=== PATIENT | female | born 1970 | race Caucasian/White ===

== ENCOUNTER 2024-05-11 09:50 | Outpatient (CLI) | payer OTHER, SELFPAY ==
--- NOTE | ~2024-05-11 | MR_ITS ---
EXAMINATION: MR shoulder LT wo con DATE: 05/11/2024 10:35 INDICATION: Left shoulder pain. TECHNIQUE: Magnetic resonance imaging (MRI) of the left shoulder was performed without intravenous co ntrast. Sequences included axial PD-weighted FS FSE, coronal oblique PD-weighted FS FSE and T2-weight ed FS FSE, and sagittal oblique T2-weighted FS FSE and T1-weighted FSE. COMPARISON: None. FINDINGS: Coracoacromial arch: The acromion undersurface is curved in morphology (type II). There is mild acromioclavicular joint os teoarthritis. There is a physiologic volume of fluid in the subacromial/subdeltoid bursa. Rotator cuff: There is mild supraspinatus and infraspinatus tendinopathy. Teres minor tendon is normal. There is mi ld subscapularis tendinopathy. No tear. There is no asymmetric fatty atrophy of the rotator cuff musc le bellies. Biceps tendon and glenoid labrum: Biceps tendon is in bicipital groove. There is mild intra-articular biceps tendinopathy. The glenoid labrum is normal. Fluid: There is no glenohumeral joint effusion. Bones/cartilage: There is cartilage surface irregularity of glenoid and humeral head. IMPRESSION: 1. Mild rotator cuff tendinopathy. No tear. 2. Mild glenohumeral joint chondrosis. 3. Mild acromioclavicular joint osteoarthritis. 4. Mild biceps tendinopathy. Reviewed, dictated and finalized at location A. EE PLANTATION WORKER
== END 2024-05-11 09:51 | disposition home or self-care (01) ==
LOC: GOSHIMG 09:54
PROVIDERS: PCP Orthopaedic Surgery; Visit Provider Orthopaedic Surgery
DX: M75.22 Bicipital tendinitis, left shoulder (principal); M19.012 Primary osteoarthritis, left shoulder
CPT/HCPCS: 73221

== ENCOUNTER 2024-05-20 12:20 | Emergency (ER) | payer OTHER, SELFPAY ==
--- NOTE | ~2024-05-20 | XR_ITS ---
XR chest 2V DATE: 05/20/2024 14:09 INDICATION: Cough TECHNIQUE: 2 views COMPARISON: None FINDINGS: There is mild patchy right lower lobe infiltrate. The lungs otherwise appear clear. No pleural effusion or pulmonary congestion or pneumothorax. Normal heart size. No hilar or mediastinal enlargement. Status post cholecystectomy. Minimal thoracic dextroscoliosis, mild degenerative spurring of the thoracic spine. IMPRESSION: Mild patchy right lower lobe infiltrate Reviewed, dictated and finalized at location A. TE SENSING ENGINEER
[2024-05-20 13:10] VITALS: BP 133/82; PULSE 106; RESP 18; TEMP 36.3; O2SAT 98
--- NOTE | 2024-05-20 13:49 | ED.URI ---
HPI - URI/Sore Throat General Chief Complaint: Upper Respiratory Infection Stated Complaint: cough Time Seen by Provider: 05/20/24 13:50 Source: patient, RN notes reviewed and old records reviewed Mode of arrival: ambulatory Limitations: no limitations History of Present Illness HPI Narrative: 54-year-old female who presents to [facility] with complaints of 1 week duration of some sinus congestion with nonproductive cough. Patient reports that she has coughed so hard she could hardly catch her breath. Patient reports some tactile fevers,no chills or sweats or any body aches. Patient reports that she has taken NyQuil, hot showers, used vicks and drank hot toddies for her symptoms. 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 MD elicited complaint: fever (tactile), cough, rhinorrhea and nasal congestion Onset (ago): week(s) (1) Consistency: constant Severity: moderate Description of mucous: clear Able to tolerate fluids by mouth: Yes Treatments prior to arrival: other (NyQuil, Vicks, hot showers hot toddies) Related Data Home Medications ?Medication ?Instructions ?Recorded ?Confirmed ?Last Taken ?Type nortriptyline 25 mg capsule mg 05/20/24 Unknown History Allergies Allergy/AdvReac Type Severity Reaction Status Date / Time No Known Allergies Allergy Verified 05/20/24 13:33 Review of Systems Review of Systems: CONSTITUTIONAL: Reports malaise, chills, sweats, tactile fever. EYES: Denies visual changes, redness, or discharge. ENT: Reports rhinorrhea, congestion, no sinus pain,no otalgia and no sore throat. CARDIOVASCULAR: Denies chest pain, palpitations, or edema. RESPIRATORY: Reports non productive cough.? Denies acute dyspnea. GASTROINTESTINAL: Denies abdominal pain, nausea, vomiting, diarrhea SKIN: Denies rash or itching. MUSCULOSKELETAL: Denies myalgia. NEUROLOGIC: Denies headache. 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 There is no relevant family history pertinent to the presenting complaint Exam Narrative: GENERAL: Well-appearing, well-nourished, and in no acute distress. HEAD: Normocephalic EYES: PERRLA, conjunctivae clear ENT: Nares clear, turbinates edematous and erythematous, clear discharge. Mucous membranes moist. TM pearly vargas with dull light reflex bilaterally; no tragal tenderness. Oropharynx erythematous without lesions. Tonsils not enlarged and without exudate, no drooling, no hoarseness, no trismus, uvula midline.post nasal discharge NECK: Supple. No lymphadenopathy CHEST: decreased bases on auscultation, breath sounds equal. No wheezing, rhonchi, rales, or stridor. No respiratory distress, speaks in full sentences.acute cough SAO2 98% on room air HEART: Regular rate and rhythm. No murmur heard. SKIN: Warm, dry, no rash. NEURO: Alert and oriented x3. PSYCH: Normal mood and affect Course Course Emergency Course: Patient is aware of diagnosis, understands and agrees to treatment plan.? Anticipatory guidance given.? Patient agrees to follow-up as directed and is aware of reasons to seek care at the emergency department. Portions of this record may have been created with voice recognition software Level of Care: Express Care Visit Vital Signs Vital signs: Vital Signs Temperature 36.3 C L 05/20/24 13:10 Pulse Rate 106 H 05/20/24 13:10 Respiratory Rate 18 05/20/24 13:10 Blood Pressure 133/82 05/20/24 13:10 Pulse Oximetry 98 05/20/24 13:10 Oxygen Delivery Room Air 05/20/24 13:10 Temperature 36.3 C L 05/20/24 13:10 Pulse Rate 106 H 05/20/24 13:10 Respiratory Rate 18 05/20/24 13:10 Blood Pressure 133/82 05/20/24 13:10 Pulse Oximetry 98 05/20/24 13:10 Oxygen Delivery Room Air 05/20/24 13:10 Reviewed MDM - URI/Sore Throat MDM Narrative Medical decision making narrative: Differential diagnosis considered: Crisostomo virus, strep pharyngitis, allergic rhinitis, upper respiratory tract infection, sinusitis, rhinosinusitis, nasopharyngitis. viral pharyngitis, otitis media, otitis externa, pneumonia, bronchitis, viral cough syndrome, viral syndrome, and influenza.? Exam findings show no acute concerns or changes; patient is non-toxic appearing and is in no distress.? Patient is appropriate for outpatient treatment and follow-up. Differential Diagnosis Differential diagnosis: Likely upper respiratory infection, viral infection and other (pneumonia, acute cough) Medical Records Attestation: I reviewed the patient's medical records. Lab Data Attestation: I reviewed the patient's lab results. Imaging Data Attestation: I personally reviewed and interpreted this imaging study as follows: My impression: right lower lobe pneumonia Radiologist's impression: [address] [address] XRay Report Signed Patient: Linh Ortiz : 1970 MR#: [id number] Age: 54 Acct:[id number] Loc: [facility] ADM Date: 05/20/24Attending Dr: Ordering Physician: Merle Monroy ORE BUYER Date of Service: 05/20/24 Procedure(s): XR chest 2V Accession Number(s): [id number] cc: WINDOWS SUPPORT ENGINEER PHYSICIAN; Merle Monroy ORE BUYER~ XR chest 2V DATE: 05/20/2024 14:09 INDICATION: Cough TECHNIQUE: 2 views COMPARISON: None FINDINGS: There is mild patchy right lower lobe infiltrate. The lungs otherwise appear clear. No pleural effusion or pulmonary congestion or pneumothorax. Normal heart size. No hilar or mediastinal enlargement. Status post cholecystectomy. Minimal thoracic dextroscoliosis, mild degenerative spurring of the thoracic spine. IMPRESSION: Mild patchy right lower lobe infiltrate Reviewed, dictated and finalized at location A. [employer] Dictated By: Douglas Chaney MD 05/20/24 1412 Signed By: <Electronically signed by Douglas Chaney MD in OV> Critical Care Time Critical Care Time Critical Care Time: No Discharge Plan Discharge Clinical Impression: Right lower lobe pneumonia Qualifiers: Pneumonia type: due to unspecified organism Qualified Code(s): J18.9 - Pneumonia, unspecified organism Patient Disposition: Home, Self-Care Condition: Stable Instructions: Antibiotic Form, Pneumonia (ED) Additional Instructions: Increase fluids especially juices and water Ifvx-fav-ywkyhyd cough and cold medicine of your choice for your symptoms Prescription cough medicine as directed--caution drowsiness and no driving or alcohol Tylenol or ibuprofen for any fever pain If your symptoms persist, change or worsen significantly before you can contact your personal physician then please, without delay, go to the emergency department for further evaluation. Follow-up with PCP in 7-10 days or sooner if needed Follow up with PCP soon in regards to your blood pressure which is elevated above threshold for referral. Blood pressure above 120/80 may indicate pre-hypertension. 133/82 Continue your inhaler/nebulizer as directed Steroids as directed--take with food heat to the face 20-30 minutes 4-6 times a day for pain Salt water gargles, throat lozenges or throat sprays as desired Antibiotic as directed--finished the medication Patient Language: Serbian Prescriptions: New azithromycin 500 mg tablet 500 mg PO DAILY 5 Days Qty: 5 0RF prednisone 20 mg tablet 40 mg PO DAILY 5 Days Qty: 10 0RF albuterol sulfate 90 mcg/actuation HFA aerosol inhaler 2 puff inhalation QID PRN (Reason: shortness of breath or wheezing) Qty: 8.5 0RF codeine-guaifenesin 10-100 mg/5 mL liquid 10 ml PO Q6H PRN (Reason: cough) Qty: 200 0RF No Action nortriptyline 25 mg capsule Follow-up/Referrals: PHYSICIAN,WINDOWS SUPPORT ENGINEER [Primary Care Provider] - Time of Disposition: 14:26 Quality Diana Coma Scale Eyes: Open Verbal: Oriented and Alert Motor: Follows Commands [place] Coma Total Score: 15
--- OUTSIDE RECORDS SUMMARY | 2024-05-27 17:44 | XMS_ITS | Encounter Summary ---
Author Organization [facility] Address [address] [place] [address]. [place], [place] [id number] [place] [address] Care Team Providers Care Carton Inspector Name Role Phone Unavailable Primary Care Provider Unavailabl e Encounter Details Date Type Department Care Team (Latest Contact Info) Description 11/28/2014 Abstract [facility] Wade Baird NP Social History Tobacco Use Types Packs/Day Years Used Date Smoking Tobacco: Never Comments Unknown Sex and Gender Information Value Date Recorded Sex Assigned at Not on file Legal Sex Female 2:01 AM CDT Gender Identity Not on file Sexual Orientation Not on file documented as of this encounter Plan of Treatment Not on file documented as of this encounter Procedures Procedure Name Priority Date/Time Associated Diagnosis Comments TSH W/REFLEX Routine 11/28/2014 11:09 AM CDT documented in this encounter Results * TSH W/REFLEX (SNS) (11/28/2014 11:09 AM CDT) TSH 2.61 mIU/L [facility] T O EPIC CONVERSION Comment: Result Comment: ? Reference Range ?> or = 20 Years ??0.40-4.50 ? Ranges ?First trimester ?0.26-2.66 ?Second trimester ?? 0.55-2.73 ?Third trimester ?0.43-2.91 REPORT COMMENT: FASTING:NO Test Performed at: [facility] [place] [id number] [place] [address] [place] ??[id number] ? ANUSHA MCLEOD DO,MPH 11/28/2014 11:0 9 AM CDT 11/28/2014 11:09 AM CDT Narrative [facility] TO EPIC CONVERSION - 11/28/2014 11:09 AM CDT Result Communication: Call patient with results Wade Baird NP LABORATORY Final Result [facility] TO EPIC CONVERSION documented in this encounter Visit Diagnoses Not on filedocumented in this encounter
--- OUTSIDE RECORDS SUMMARY | 2024-05-27 17:44 | XMS_ITS | Encounter Summary ---
Author Organization [facility] Address [address] [place] [address]. [place] [id number] [place], [place] [id number] Care Team Providers Care Talk Show Host Name Role Phone Unavailable Primary Care Provider Unavailabl e Encounter Details Date Type Department Care Team (Late st Contact Info) Description 05/07/2015 Abstract [facility] Family & Internal Medicine [facility] [address] [place] [address] Wade Baird NP Social History Tobacco Use Types Packs/Day Years Used Date Smoking Tobacco: Never Comments Unknown Sex and Gender Information Value Date Recorded Sex Assigned at Not on file Legal Sex Female 2:01 AM CDT Gender Identity Not on file Sexual Orientation Not on file documented as of this encounter Progress Notes * Wade Baird NP - 05/07/2015 1:30 PM CST Message Recorded as Task Date: 05/07/2015 12:46 PM, Created By: Wade Baird Task Name: Call Back [facility] Regarding Patient: Linh Ortiz, Status: In Progress Comment: Wade Baird - 07 May 2015 12:46 PM TASK CREATED please notify patient an order for an MRI has been placed. her neck CT showed mild narrowing at thec5-6 level. Coleen Valerio - 07 May 2015 1:30 PM TASK EDITED pt informed and aware Signatures Electronically signed by : Coleen Thompson, ; May 07 2015 1:31PM POWER SHOVEL OPERATOR (Author) * Wade Baird NP - 05/07/2015 10:58 AM CST patient here after seen ER this am and two days ago for right arm/hand pain. unable to get EMG for two weeks. CT of neck done in ER today; told to have MRI ordered. we do not have results of CT. explained to patient and will need CT results before ordering MRI as xray of neck normal. Electronically signed by:Wade Baird N.P. May 07 2015 11:00AM POWER SHOVEL OPERATOR * Teri Xiao Md, MD - 05/07/2015 10:38 AM CST This legacy Allscripts note was not finalized in Allscripts. It had a status of Auto Frozen, Unsigned on 02/24/2018 Message Date of Hospital/[place] Discharge: 05/07/2015 Date of Contact: Individual Contacted: Contacted by: Reviewed/ Addressed documented in this encounter Plan of Treatment Not on file documented as of this encounter Visit Diagnoses Not on filedocumented in this encounter
--- OUTSIDE RECORDS SUMMARY | 2024-05-27 17:44 | XMS_ITS | Clinical Summary ---
Author Organization [facility] Address [address] [place] [address]. [place], [place] [id number] [place] [id number] Care Team Providers Care Radio Board Operator Announcer Name Role Phone Unavailable Primary Care Provider Unavailabl e Immunizations Name Administration Dates Next Due MODERNA COVID-19 (12+) MRNA, LNP-S, PF, 100 MCG/ 0.5 ML DOSE 08/01/2020,07/04/2020 Social History Tobacco Use Types Packs/Day Years Used Date Smoking Tobacco: Never Comments Unknown Sex and Gender Information Value Date Recorded Sex Assigned at Not on file Legal Sex Female 2:01 AM CDT Gender Identity Not on file Sexual Orientation Not on file Last Filed Vital Signs Vital Sign Reading Time Taken Comments Blood Pressure 104/80 07/04/2017 2:48 PM SUPERVISOR FUNCTIONAL TESTING Pulse 94 07/04/2017 2:48 PM SUPERVISOR FUNCTIONAL TESTING Temperature - - Respiratory Rate - - Oxygen Saturation - - Inhaled Oxygen Concentration - - Weight 103.1 kg (227 lb 6.1 oz) 07/04/2017 2:48 PM SUPERVISOR FUNCTIONAL TESTING Height 160 cm (5' 3 ) 07/04/2017 2:48 PM SUPERVISOR FUNCTIONAL TESTING Body Mass Index 40.28 07/04/2017 2:48 PM SUPERVISOR FUNCTIONAL TESTING Plan of Treatment Health Maintenance Due Date Last Done Comments Cervical Cancer Screening Pa p Smear (Age 30 to 64) Every 3 Years 1972 Colorectal Cancer Screening Colonoscopy (10 Years) 1972 Annual Physical 1975 Hepatitis C 1990 DTaP, Tdap and Td Vaccines ( 1 - Tdap) 1991 Hepatitis B Vaccines (1 of 3 - 19+ 3-dose series) 1991 Cervical Cancer Screening Pa p with HPV Testing (Age 30 to 64) Every 5 Years 2002 Cervical Cancer Screening wi th HPV 2002 Mammogram Screening 2012 Zoster Vaccines (1 of 2) 2022 COVID-19 Vaccine (3 2023-2 5 season) 2024 08/01/2020, 07/04/2020 Influenza Adult (#1) 2024 Meningococcal Vaccine Aged Out No brittany jairo eligible based on patient's age to complete this topic Pneumococcal Vaccine: Pediatrics (0 to 5 Years) and At-Risk Patients (6 to 64 Years) Aged Out No longer eligible b ased on patient's age to complete this topic RSV Immunizations Under 20 Months Aged Out No longer eligible b ased on patient's age to complete this topic
--- OUTSIDE RECORDS SUMMARY | 2024-05-27 17:44 | XMS_ITS | Encounter Summary ---
Author Organization [facility] Address [address] [place] [address]. [place] [address] [place] [address] Care Team Providers Care Rehab Spec Name Role Phone Unavailable Primary Care Provider Unavailabl e Encounter Details Date Type Department Care Team (Latest Contact Info) Description 01/28/2015 Abstract [facility] Marek Blue MD [address] [facility] [place] [address] Social History Tobacco Use Types Packs/Day Years Used Date Smoking Tobacco: Never Comments Unknown Sex and Gender Information Value Date Recorded Sex Assigned at Not on file Legal Sex Female 2:01 AM CDT Gender Identity Not on file Sexual Orientation Not on file documented as of this encounter Progress Notes * Marek Blue MD - 01/28/2015 3:33 PM CDT Message Message: I called and spoke with the patient regarding FNA results from thyroid. Secondary to benign results but large size of nodule, we will plan a f/u US in 1 year. Active Problems 1. Abdominal pain, right upper quadrant (789.01) (R10.11) 2. Abnormal EKG (794.31) (R94.31) 3. Thyroid nodule (241.0) (E04.1) Current Meds 1. No Reported Medications Recorded Allergies 1. No Known Drug Allergies Signatures Electronically signed by : Marek Blue M.D.; Jan 28 2015 3:34PM CARPET BINDER (Author) documented in this encounter Plan of Treatment Not on file documented as of this encounter Visit Diagnoses Not on filedocumented in this encounter
--- OUTSIDE RECORDS SUMMARY | 2024-05-27 17:44 | XMS_ITS | Encounter Summary ---
Author Organization [facility] Address [address] [place] [address]. [place], [place] [id number] [place] [address] Care Team Providers Care Aircraft Engine Mechanic Name Role Phone Unavailable Primary Care Provider Unavailabl e Encounter Details Date Type Department Care Team (Latest Contact Info) Description 12/04/2014 Abstract [facility] Social History Tobacco Use Types Packs/Day Years Used Date Smoking Tobacco: Never Comments Unknown Sex and Gender Information Value Date Recorded Sex Assigned at Not on file Legal Sex Female 2:01 AM CDT Gender Identity Not on file Sexual Orientation Not on file documented as of this encounter Progress Notes * Teri Xiao Md, MD - 12/04/2014 5:02 PM CDT Message Recorded as Task Date: 12/02/2014 08:15 AM, Created By: Wade Baird Task Name: Call Patient with results Assigned To: Wade Baird Regarding Patient: Linh Ortiz, Status: Active Comment: Wade Baird - 02 Dec 2014 8:15 AM Patient please notify patient her thyroid hormone is normal. will notify her of thyroid US results when available. thanks Jasmin Patel - 04 Dec 2014 5:02 PM TASK EDITED pt told results. Signatures Electronically signed by : Jasmin Patel, ; Dec 04 2014 5:03PM ELECTRICAL ENGINEERING MANAGER (Author) documented in this encounter Plan of Treatment Not on file documented as of this encounter Visit Diagnoses Not on filedocumented in this encounter
--- OUTSIDE RECORDS SUMMARY | 2024-05-27 17:44 | XMS_ITS | Encounter Summary ---
Author Organization [facility] Address [facility] [facility] [place] [address] [place] [address] Care Team Providers Care Him Specialist Name Role Phone Unavailable Primary Care Provider Unavailabl e Encounter Details Date Type Department Care Team (Late st Contact Info) Description 12/12/2014 Abstract [facility] Medical [facility] General Surgery - Emiliano [address] [facility], [address] [place] [address] Marek Blue MD [address] [facility] [place] [address] Social History Tobacco Use Types Packs/Day Years Used Date Smoking Tobacco: Never Comments Unknown Sex and Gender Information Value Date Recorded Sex Assigned at Not on file Legal Sex Female 2:01 AM CDT Gender Identity Not on file Sexual Orientation Not on file documented as of this encounter Last Filed Vital Signs Vital Sign Reading Time Taken Comments Blood Pressure 102/70 12/12/2014 11:50 AM CDT Pulse 56 12/12/2014 11:50 AM CDT Temperature - - Respiratory Rate - - Oxygen Saturation - - Inhaled Oxygen Concentration - - Weight 99.8 kg (220 lb) 12/12/2014 11:50 AM CDT Height 160 cm (5' 3 ) 12/12/2014 11:50 AM CDT Body Mass Index 38.97 12/12/2014 11:50 AM CDT documented in this encounter Progress Notes * Marek Blue MD - 12/12/2014 11:45 AM CDT Reason For Visit Consultation Visit History of Present Illness HPI: Patient presents to clinic with concerns about incidentally found thyroid nodule and normal TSH. She has US that shows multinodular goiter with largest node over 3 cm on the right. She has no symptoms or concerns. Review of Systems See HPI for pertinent positives. Constitutional: negative. Head and Face: no facial pressure. Eyes: no watery discharge from the eyes. ENT: no nasal congestion. Cardiovascular: negative. Respiratory: negative. Gastrointestinal: negative. Genitourinary: no dysuria. Musculoskeletal: no back pain. Integumentary no superficial skin pain and no rash. Psychiatric: no anxiety. Hematologic and Lymphatic: no tendency for easy bleeding and no jaundice. Neurological no headache. Endocrine no night sweats. Active Problems 1. Abdominal pain, right upper quadrant (789.01) (R10.11) 2. Abnormal EKG (794.31) (R94.31) 3. Thyroid nodule (241.0) (E04.1) Past Medical History 1. History of malignant neoplasm of cervix uteri (V10.41) (Z85.41) Surgical History 1. History of Gallbladder Surgery Family History Mother 1. Family history of rheumatoid arthritis (V17.7) (Z82.61) Family History 2. Family history of Coronary bypass graft mechanical complication Social History ? Never a smoker Current Meds 1. No Reported Medications Recorded GISELE = N; ; Last Updated By: Bernadine Chisholm; 10/04/2014 3:49:09 PM Allergies 1. No Known Drug Allergies Recorded By: Bernadine Chisholm; 10/04/2014 3:48:48 PM Vitals Recorded: [id number] 11:50AM Temperature 97.8 F Heart Rate 56 Respiration 20 Systolic 102 Diastolic 70 O2 Saturation 95 Height 5 ft 3 in Weight 220 lb BMI Calculated 38.97 BSA Calculated 2.01 Physical Exam Constitutional - General appearance: No acute distress, well appearing and well nourished. Cardiovascular - Peripheral vascular exam: Normal. Examination of extremities for edema and/or varicosities: Normal. Pulmonary - Respiratory effort: Normal. Auscultation of lungs: Normal. Abdomen - Abdomen: Non-tender, no masses. Liver and spleen: No hepatomegaly or splenomegaly. Lymphatic - Palpation of lymph nodes: No lymphadenopathy. Skin - Skin and subcutaneous tissue: Normal without rashes or lesions. Neurologic - Sensation: Normal. Psychiatric - Orientation to person, place, and time: Normal. Mood and affect: Normal. Assessment 44 y/o female with multinodular goiter with one 3 cm nodule Plan Thyroid nodule 1. Call if: You have questions or concerns about your problem.; Status:Active; Requested for:[id number]; Last Updated By:Maddison Cherry; 12/12/2014 11:52:19 AM;Ordered; For:Thyroid nodule; Ordered By:Marek Blue; 2. NM THYROID SCAN W/UPTAKE MULTI; Status:Need Information - Financial Authorization; Requested for:[id number]; Perform:[facility]; Due:[id number]; Last Updated By:Silvia Padron; 12/12/2014 12:03:51 PM;Ordered; For:Thyroid nodule; Ordered By:Delbert Agustin; thyroid uptake scan to assess for cold nodule that may be suspicious, I will call with results and arrange for FNA bx of at least the largest nodule Signatures Electronically signed by : Marek Blue M.D.; Dec 12 2014 1:31PM LABOR OPERATOR (Author) documented in this encounter Plan of Treatment Not on file documented as of this encounter Visit Diagnoses Not on filedocumented in this encounter
--- OUTSIDE RECORDS SUMMARY | 2024-05-27 17:44 | XMS_ITS | Encounter Summary ---
Author Organization [facility] Address [facility] [facility] [address] [place] [address] Care Team Providers Care Cloth Bleaching Range Back Tender Name Role Phone Unavailable Primary Care Provider Unavailabl e Encounter Details Date Type Department Care Team (Late st Contact Info) Description 11/27/[address] [facility] Diagnostic Imaging [address] [place] [id number] Rashaun Booker MD [address] [id number] Social History Tobacco Use Types Packs/Day Years Used Date Smoking Tobacco: Never Comments Unknown Sex and Gender Information Value Date Recorded Sex Assigned at Not on file Legal Sex Female 2:01 AM CDT Gender Identity Not on file Sexual Orientation Not on file documented as of this encounter Plan of Treatment Not on file documented as of this encounter Visit Diagnoses Diagnosis Benign essential hypertension Essential hypertension, benign documented in this encounter
--- OUTSIDE RECORDS SUMMARY | 2024-05-27 17:44 | XMS_ITS | Encounter Summary ---
Author Organization [facility] Address [address] [place] [address]. [place] [address] [place] [address] Care Team Providers Care Caustic Plant Worker Name Role Phone Unavailable Primary Care Provider Unavailabl e Encounter Details Date Type Department Care Team (Late st Contact Info) Description 05/05/2015 Abstract [facility] Emergency Room [address] [place] [address] Konrad Tolentino MD [address] [facility] [address] [place] [address] Social History Tobacco Use Types Packs/Day Years Used Date Smoking Tobacco: Never Comments Unknown Sex and Gender Information Value Date Recorded Sex Assigned at Not on file Legal Sex Female 2:01 AM CDT Gender Identity Not on file Sexual Orientation Not on file documented as of this encounter Plan of Treatment Not on file documented as of this encounter Visit Diagnoses Diagnosis Carpal tunnel syndrome of right wrist Carpal tunnel syndrome documented in this encounter
--- OUTSIDE RECORDS SUMMARY | 2024-05-27 17:44 | XMS_ITS | Encounter Summary ---
Author Organization [facility] Address [address] [place] [address]. [place] [id number] [place], [place] [id number] Care Team Providers Care Emergency Medical Service Manager Name Role Phone Unavailable Primary Care Provider Unavailabl e Encounter Details Date Type Department Care Team (Latest Contact Info) Description 04/29/2015 Abstract [facility] Medical Group Social History Tobacco Use Types [...]
--- OUTSIDE RECORDS SUMMARY | 2024-05-27 17:44 | XMS_ITS | Encounter Summary ---
Author Organization [facility] Address [address] [place] [address]. [place], [place] [address] [place] [address] Care Team Providers Care Skimmer Reverberatory Name Role Phone Unavailable Primary Care Provider Unavailabl e Encounter Details Date Type Department Care Team (Latest Contact Info) Description 12/02/2014 Abstract [facility] Medical Group Social History Tobacco Use Types Packs/Day Years Used Date Smoking Tobacco: Never Comments Unknown Sex and Gender Information Value Date Recorded Sex Assigned at Not on file Legal Sex Female 2:01 AM CDT Gender Identity Not on file Sexual Orientation Not on file documented as of this encounter Progress Notes * Tyler Nails MD - 12/02/2014 8:15 AM CDT Message please notify patient her thyroid hormone is normal. will notify her of thyroid US results when available. thanks received carotid US results which showed possible thyroid nodules. a TSH and thyroid US were ordered Verified Results QU-TSH W/REFLEX TO FT4 [id number] 11:09AM Wade Baird Test Name Result Flag Reference TSH W/REFLEX TO FT4 2.61 mIU/L Reference Range > or = 20 Years 0.40-4.50 Ranges First trimester 0.26-2.66 Second trimester 0.55-2.73 Third trimester 0.43-2.91 REPORT COMMENT: FASTING:NO Test Performed at: [facility] [address] [place] [address] ANUSHA MCLEOD DO,MPH Signatures Electronically signed by : Wade Baird NP; Dec 02 2014 8:16AM TITLE CURATIVE SPECIALIST (Author) documented in this encounter Plan of Treatment Not on file documented as of this encounter Visit Diagnoses Not on filedocumented in this encounter
--- OUTSIDE RECORDS SUMMARY | 2024-05-27 17:44 | XMS_ITS | Encounter Summary ---
Author Organization [facility] Address [address] [place] [address]. [place] [address] [place] [address] Care Team Providers Care Phys Ther Name Role Phone Unavailable Primary Care Provider Unavailabl e Encounter Details Date Type Department Care Team (Latest Contact Info) Description 01/24/2015 Abstract [facility] Medical Group Marek Groves MD [address] [place] [address] Social History Tobacco Use Types Packs/Day Years Used Date Smoking Tobacco: Never Comments Unknown Sex and Gender Information Value Date Recorded Sex Assigned at Not on file Legal Sex Female 2:01 AM CDT Gender Identity Not on file Sexual Orientation Not on file documented as of this encounter Procedure Notes * Marek Groves MD - 01/23/2015 4:01 PM CDT [facility] Patient: JUSTINA ORDAZ [facility] Rec#: [id number] Birthdate: 1970 Admit/Svce Date: 01/23/2015 Disch Date: Attending Md: SAURABH GROVES MD OPERATIVE RECORD Date of Operation: 01/23/2015 Surgeon: Saurabh Groves MD Ass't: Chart Document Preoperative Diagnosis: Multiple thyroid nodules, largest on the right with greatest dimension of 3 cm on thyroid uptake scans noted to be cold. Postoperative Diagnosis: Multiple thyroid nodules, largest on the right with greatest dimension of 3 cm on thyroid uptake scans noted to be cold. Name of Operation: Ultrasound guided fine needle aspiration of nodule. PROCEDURE AND FINDINGS: ANESTHESIA: 1% lidocaine with epinephrine. SPECIMENS: Sent to pathology, reviewed for cellularity prior to completing exam, determining good cellularity. COMPLICATIONS: None. INDICATIONS FOR PROCEDURE: The patient presented to the clinic with concerns of multiple nodules noted on thyroid ultrasound, sent for thyroid uptake scan showing cold area in the vicinity of largest nodule. The risks, benefits, alternatives and complications of the procedure including infection, bleeding, damage to surrounding tissue, need for further procedure were discussed with the patient who wished to proceed. PROCEDURE: The patient was brought into the Ultrasound Suite. Time-out was called with agreement of all members in the room. The patient was lying in the supine position. Nodule was localized. The area was prepped and draped in the usual sterile fashion. Time-out was called. Then an ultrasound in sterile sleeve was used again to localize the nodule. A 25 gauge needle was used to aspirate on a total of five passes after numbing the area superficially. The patient tolerated the procedure well. No signs of bleeding or bruising were noted. The area was cleaned, bandage was placed. The patient was brought to recovery. Electronically Signed By: Saurabh Groves MD 01/24/2015 01:20 P MD Jeronimo ParkerK: P A cc: Saurabh Groves MD [phone] documented in this encounter Plan of Treatment Not on file documented as of this encounter Visit Diagnoses Not on filedocumented in this encounter
--- OUTSIDE RECORDS SUMMARY | 2024-05-27 17:44 | XMS_ITS | Encounter Summary ---
Author Organization [facility] Address [address] [place] [address]. [place] [phone] [place], [place] [id number] Care Team Providers Care Oven Tender Bagels Name Role Phone Unavailable Primary Care Provider Unavailabl e Encounter Details Date Type Department Care Team (Late st Contact Info) Description 11/19/2014 [facility] [address] [place] [address] , Teri Xiao MD Social History Tobacco Use Types Packs/Day Years [...]
--- OUTSIDE RECORDS SUMMARY | 2024-05-27 17:44 | XMS_ITS | Encounter Summary ---
Author Organization [facility] Address [address] [place] [address]. [place] [phone] [place] [address] Care Team Providers Care Feed Weigher Name Role Phone Unavailable Primary Care Provider Unavailabl e Encounter Details Date Type Department Care Team (Latest Contact Info) Description 08/21/2015 Abstract [facility] Medical Group Wade Baird, ENTERPRISE ENGINEER Social History Tobacco Use Types Packs/Day Years [...]
--- OUTSIDE RECORDS SUMMARY | 2024-05-27 17:44 | XMS_ITS | Encounter Summary ---
Author Organization [facility] Address [address] [place] [address]. [place] [phone] [place], [place] [phone] Care Team Providers Care Photolettering Machine Operator Name Role Phone Unavailable Primary Care Provider Unavailabl e Encounter Details Date Type Department Care Team (Late st Contact Info) Description 05/13/2015 Abstract [facility] Medical Group Family & Internal Medicine [facility] [address] [place] [address] Wade Baird NP Social History Tobacco Use Types Packs/Day Years Used Date Smoking Tobacco: Never Comments Unknown Sex and Gender Information Value Date Recorded Sex Assigned at Not on file Legal Sex Female 2:01 AM CDT Gender Identity Not on file Sexual Orientation Not on file documented as of this encounter Progress Notes * Wade Baird NP - 05/13/2015 11:43 AM CST Message Recorded as Task Date: 05/13/2015 11:43 AM, Created By: Coleen Thompson Task Name: Medical Complaint Callback [facility] Regarding Patient: Linh Ortiz, Status: In Progress Comment: Coleen Thompson - 13 May 2015 11:43 AM TASK CREATED Pt called wanting to know if she needs to wean off the prednisone and gabpentin since she has a fewdays left of medications. Spoke with Wade and wants pt to continue taking gabpentin and will refill for 30 days, needs to complete the prednisone and no refills Coleen Thompson - 13 May 2015 11:48 AM TASK EDITED spoke with pt and understands. Script was sent to [facility]. Gabapentin 300 MG Oral Capsule; TAKE 1 CAPSULE BY MOUTH THREE TIMES A DAY Rx By: Wade Baird; Dispense: 30 Days ; #:90 Capsule; Refill: 0; For: Carpal tunnel syndrome of right wrist; GISELE = N; Verified Transmission to [facility]; Last Updated By: Vijay Chatman; 05/13/2015 11:45:17 AM Signatures Electronically signed by : Coleen Thompson, ; May 13 2015 11:49AM TRANSIT MIXER OPERATOR (Author) documented in this encounter Plan of Treatment Not on file documented as of this encounter Visit Diagnoses Not on filedocumented in this encounter
--- OUTSIDE RECORDS SUMMARY | 2024-05-27 17:44 | XMS_ITS | Encounter Summary ---
Author Organization [facility] Address [address] [place] [address]. [place] [phone] [place] [address] Care Team Providers Care Clasp Machine Operator Name Role Phone Unavailable Primary Care Provider Unavailabl e Encounter Details Date Type Department Care Team (Latest Contact Info) Description 05/27/2015 Abstract [facility] Medical Group Wade Baird, NOODLE CATALYST MAKER Social History Tobacco Use Types Packs/Day Years [...]
--- OUTSIDE RECORDS SUMMARY | 2024-05-27 17:44 | XMS_ITS | Encounter Summary ---
Author Organization [facility] Address [address] [place] [address]. [place] [address] [place] [address] Care Team Providers Care Child Welfare Caseworker Name Role Phone Unavailable Primary Care Provider Unavailabl e Encounter Details Date Type Department Care Team (Late st Contact Info) Description 11/22/2017 Abstract [facility] Diagnostic Imaging [address] [place] [address] Malvin Vargas, C WINFORMS DEVELOPER [address] [place] [address] Social History Tobacco Use Types Packs/Day Years Used Date Smoking Tobacco: Never Comments Unknown Sex and Gender Information Value Date Recorded Sex Assigned at Not on file Legal Sex Female 2:01 AM CDT Gender Identity Not on file Sexual Orientation Not on file documented as of this encounter Plan of Treatment Not on file documented as of this encounter Visit Diagnoses Diagnosis Pelvic and perineal pain Unspecified symptom associated with female genital organs documented in this encounter
--- OUTSIDE RECORDS SUMMARY | 2024-05-27 17:44 | XMS_ITS | Encounter Summary ---
Author Organization [facility] Address [address] [place] [address]. [place], [place] [address] [place] [address] Care Team Providers Care Weekday Babysitter Name Role Phone Unavailable Primary Care Provider Unavailabl e Encounter Details Date Type Department Care Team (Latest Contact Info) Description 12/20/2014 Abstract [facility] Medical Group Social History Tobacco Use Types Packs/Day Years Used Date Smoking Tobacco: Never Comments Unknown Sex and Gender Information Value Date Recorded Sex Assigned at Not on file Legal Sex Female 2:01 AM CDT Gender Identity Not on file Sexual Orientation Not on file documented as of this encounter Progress Notes * Marek Blue MD - 12/20/2014 11:36 AM CDT Message Message: Patient called requesting Thyroid Scan results. Spoke with Dr. Blue, he reviewed the report and recommended a FNA. Patient notified of results and orders. Stated was on vacation and would call when returned to schedule procedure. Signatures Electronically signed by : Maddison Cherry, ; Dec 25 2014 11:48AM SHACTOR HELPER (Author) documented in this encounter Plan of Treatment Not on file documented as of this encounter Visit Diagnoses Not on filedocumented in this encounter
--- OUTSIDE RECORDS SUMMARY | 2024-05-27 17:44 | XMS_ITS | Encounter Summary ---
Author Organization [facility] Address [address] [place] [address]. [place] [phone] [place] [address] Care Team Providers Care Sheetmetal Patternmaker Name Role Phone Unavailable Primary Care Provider Unavailabl e Encounter Details Date Type Department Care Team (Latest Contact Info) Description 11/22/2017 Abstract [facility] Medical Group Wade Baird, SCRAP METAL PROCESSING WORKER Social History Tobacco Use Types Packs/Day Years [...]
--- OUTSIDE RECORDS SUMMARY | 2024-05-27 17:44 | XMS_ITS | Encounter Summary ---
Author Organization [facility] Address [facility]. [place], [place] [address] [place] [address] Care Team Providers Care Diet Tech Name Role Phone Unavailable Primary Care Provider Unavailabl e Encounter Details Date Type Department Care Team (Latest Contact Info) Description 12/10/2014 Abstract [facility] Medical Group Social History Tobacco Use Types Packs/Day Years Used Date Smoking Tobacco: Never Comments Unknown Sex and Gender Information Value Date Recorded Sex Assigned at Not on file Legal Sex Female 2:01 AM CDT Gender Identity Not on file Sexual Orientation Not on file documented as of this encounter Progress Notes * Generic Conversion MD Mary - 12/10/2014 10:11 AM CDT Message Recorded as Task Date: 11/27/2014 04:23 PM, Created By: Wade Baird Task Name: Call Back [facility] Regarding Patient: Linh Otriz, Status: In Progress Comment: Wade Baird - 27 Nov 2014 4:23 PM TASK CREATED please notify patient her carotid US was okay but an incidental thyroid nodule was seen so we need a blood test (TSH) and an US of thyroid. thanks Bernadine Chisholm - 27 Nov 2014 4:41 PM TASK EDITED left message to call the office. Bernadine Chisholm - 27 Nov 2014 4:41 PM TASK IN PROGRESS Jasmin Patel - 05 Dec 2014 4:29 PM TASK EDITED 12/05/14 lmtcb 4:29 Jasmin Patel - 06 Dec 2014 10:00 AM TASK EDITED 12/06/14 pt already had the tsh, normal, pt aware carotid US was ok. Now she is waiting on the results of the US of thyroid. I see she had an US of head/neck. this has information regarding her thyroid in this report. I couldn't find another US done in [facility]- but pt states that she had thyroid US done. Wade Baird - 06 Dec 2014 4:59 PM TASK REPLIED TO: Previously Assigned To Wade Baird please notify patient her thyroid US shows nodules. They are likely benign but need to be biopsied.they are not affecting her thyroid levels. thanks Cristian Kessler - 10 Dec 2014 10:12 AM TASK EDITED pt informed and transferred to Gen Surg to schedule Signatures Electronically signed by : Cristian Kessler, ; Dec 10 2014 10:13AM TELECINE OPERATOR (Author) documented in this encounter Plan of Treatment Not on file documented as of this encounter Visit Diagnoses Not on filedocumented in this encounter
--- OUTSIDE RECORDS SUMMARY | 2024-05-27 17:44 | XMS_ITS | Encounter Summary ---
Author Organization [facility] Address [address] [place] [address]. [place] [phone], [place] [id number] Care Team Providers Care Cue Selector Name Role Phone Unavailable Primary Care Provider Unavailabl e Encounter Details Date Type Department Care Team (Latest Contact Info) Description 07/04/2020 Travel Social History Tobacco Use Types Packs/Day Years Used Date Smoking Tobacco: Never Comments Unknown Sex and Gender Information Value Date Recorded Sex Assigned at Not on file Legal Sex Female 2:01 AM CDT Gender Identity Not on file Sexual Orientation Not on file COVID-19 Exposure Response Date Recorded In the last month, have you been in contact with someone who was confirmed or suspected to have Coronavirus / COVID-19? No / Unsure 07/04/2020 5:18 PM LONE LEAD LINEMAN documented as of this encounter Plan of Treatment Not on file documented as of this encounter Visit Diagnoses Not on filedocumented in this encounter
--- OUTSIDE RECORDS SUMMARY | 2024-05-27 17:44 | XMS_ITS | Encounter Summary ---
Author Organization [facility] Address [address] [place] [address]. [place], [place] [address] [place] [address] Care Team Providers Care Chemic Mangler Name Role Phone Unavailable Primary Care Provider Unavailabl e Encounter Details Date Type Department Care Team (Late st Contact Info) Description 12/03/2014 Abstract [facility] Diagnostic Imaging [address] [place] [id number] Wade Baird, CANDY BUTCHER Social History Tobacco Use Types Packs/Day Years Used Date Smoking Tobacco: Never Comments Unknown Sex and Gender Information Value Date Recorded Sex Assigned at Not on file Legal Sex Female 2:01 AM CDT Gender Identity Not on file Sexual Orientation Not on file documented as of this encounter Plan of Treatment Not on file documented as of this encounter Visit Diagnoses Diagnosis Nontoxic multinodular goiter documented in this encounter
--- OUTSIDE RECORDS SUMMARY | 2024-05-27 17:44 | XMS_ITS | Encounter Summary ---
Author Organization [facility] Address [address] [place] [address]. [place], [place] [address] [place], [place] [id number] Care Team Providers Care Ship Laborer Name Role Phone Unavailable Primary Care Provider Unavailabl e Encounter Details Date Type Department Care Team (Latest Contact Info) Description 12/03/2014 Abstract [facility] Medical Group Wade Baird, AUTOMATION TEST DEVELOPER Social History Tobacco Use Types Packs/Day Years [...] Procedure Name Priority Date/Time Associated Diagnosis Comments US SOFT TISS HEAD OR NECK Routine 12/03/2014 4:46 PM CDT documented in this encounter Results * US SOFT TISS HEAD OR NECK (12/03/2014 4:46 PM CDT) Anatomical Region Laterality Modality Head, Neck Ultrasound 12/03/2014 4:46 PM CDT 12/03/2014 4:46 PM CDT Narrative 12/06/2014 8:52 AM CDT JUSTINA ORDAZ ORDERING MD: WADE BAIRD ?? ACCT: [id number] ?? ADMIT/SERVICE DATE: 12/03/14 DISCHARGE DATE: ?? : 1970 PT TYPE: REG CLI ?? SEX: F ORD SITE: [facility] ? STUDY DATE REPORT # ORDER # EXT ORDER ID ?? 12/03/14 [id number] ? PROCEDURE CODE PROCEDURE DESCRIPTION ? SFTS-HD/NK US SOFT TISSUE HEAD NECK ? CHART DOCUMENT ? DIVISION OF RADIOLOGY ? ACCESSION # ?EXAM DATE ? EXAM DESCRIPTION ?? [id number] ?12/03/2014 ?US SOFT TISSUE HEAD NECK ? IMAGING STUDIES: ??THYROID ULTRASOUND 12/03/14 ? COMPARISON STUDIES: NO PREVIOUS AVAILABLE. ? CLINICAL HISTORY: ??ABNORMAL CAROTID DOPPLER ULTRASOUND, THYROID NODULES. ? FINDINGS: ?? REAL-TIME ULTRASOUND EXAMINATION PERFORMED BY THE AIRPLANE PILOT CROP DUSTING OF THE ?? THYROID GLAND DEMONSTRATES: ? THE RIGHT THYROID LOBE MEASURES 5.4 X 2.6 X 2.5 CENTIMETERS. ? THE LEFT THYROID LOBE MEASURES 4.5 X 1.8 X 1.5 CENTIMETERS. ? THE ISTHMUS MEASURES 4.5 MILLIMETERS. ? WITHIN THE RIGHT THYROID LOBE, THERE IS A LARGE SOLID HETEROGENEOUS ?? ISOECHOIC NODULE MEASURING 3.3 X 2.1 X 2.4 CENTIMETERS. ? WITHIN THE LEFT THYROID LOBE, THERE ARE THREE SOLID HYPOECHOIC NODULES, IN ?? THE UPPER POLE 1.2 X 0.9 X 0.9 CENTIMETERS, IN THE MID POLE 0.7 X 0.6 X 0.5 ? CENTIMETERS AND IN THE LOWER POLE 0.9 X 0.6 X 0.7 CENTIMETERS. ? IMPRESSION: ?? MULTINODULAR GOITER, THE LARGEST NODULE MEASURES UP TO 3.3 CENTIMETERS ?? LOCATED IN THE RIGHT THYROID LOBE, RECOMMEND FURTHER EVALUATION WITH ?? ULTRASOUND-GUIDED FINE NEEDLE ASPIRATION FOR FINAL DIAGNOSIS. ? ELECTRONICALLY SIGNED BY ?? STEPHEN MENDEZ MD 12/06/2014 08:51 A ? MG/SP ?? 12/03/201404:46 P ?? 12/03/2014 04:53 P ?? JOB NO: ??[id number] ??DOC NO: ??[id number] ?? CC: ?WADE BAIRD NP ? Procedure Note Teri Hernandez MD - 03/22/2018 JUSTINA ORDAZ ORDERING MD: WADE BAIRD ACCT: [id number] ADMIT/SERVICE DATE: 12/03/14 DISCHARGE DATE: : 1970 PT TYPE: REG CLI SEX: F ORD SITE: [facility] STUDY DATE REPORT # ORDER # EXT ORDER ID 12/03/14 [id number] PROCEDURE CODE PROCEDURE DESCRIPTION SFTS-HD/NK US SOFT TISSUE HEAD NECK CHART DOCUMENT DIVISION OF RADIOLOGY ACCESSION # EXAM DATE EXAM DESCRIPTION [id number] 12/03/2014 US SOFT TISSUE HEAD NECK IMAGING STUDIES: THYROID ULTRASOUND 12/03/14 COMPARISON STUDIES: NO PREVIOUS AVAILABLE. CLINICAL HISTORY: ABNORMAL CAROTID DOPPLER ULTRASOUND, THYROID NODULES. FINDINGS: REAL-TIME ULTRASOUND EXAMINATION PERFORMED BY THE AIRPLANE PILOT CROP DUSTING OF THE THYROID GLAND DEMONSTRATES: THE RIGHT THYROID LOBE MEASURES 5.4 X 2.6 X 2.5 CENTIMETERS. THE LEFT THYROID LOBE MEASURES 4.5 X 1.8 X 1.5 CENTIMETERS. THE ISTHMUS MEASURES 4.5 MILLIMETERS. WITHIN THE RIGHT THYROID LOBE, THERE IS A LARGE SOLID HETEROGENEOUS ISOECHOIC NODULE MEASURING 3.3 X 2.1 X 2.4 CENTIMETERS. WITHIN THE LEFT THYROID LOBE, THERE ARE THREE SOLID HYPOECHOIC NODULES,IN THE UPPER POLE 1.2 X 0.9 X 0.9 CENTIMETERS, IN THE MID POLE 0.7 X 0.6 X0.5 CENTIMETERS AND IN THE LOWER POLE 0.9 X 0.6 X 0.7 CENTIMETERS. IMPRESSION: MULTINODULAR GOITER, THE LARGEST NODULE MEASURES UP TO 3.3 CENTIMETERS LOCATED IN THE RIGHT THYROID LOBE, RECOMMEND FURTHER EVALUATION WITH ULTRASOUND-GUIDED FINE NEEDLE ASPIRATION FOR FINAL DIAGNOSIS. ELECTRONICALLY SIGNED BY STEPHEN MENDEZ MD 12/06/2014 08:51 A MG/SP 12/03/201404:46 P 12/03/2014 04:53 P JOB NO: [id number] DOC NO: [id number] CC: WADE BAIRD NP us Wade Baird NP ULTRASOUND Final Result documented in this encounter Visit Diagnoses Not on filedocumented in this encounter
--- OUTSIDE RECORDS SUMMARY | 2024-05-27 17:44 | XMS_ITS | Encounter Summary ---
Author Organization [facility] Address [address] [place] [address]. [place], [place] [address] [place] [address] Care Team Providers Care Associate Material Handler Name Role Phone Unavailable Primary Care Provider Unavailabl e Encounter Details Date Type Department Care Team (Late st Contact Info) Description 12/16/2014 Abstract [facility] Diagnostic Imaging [address] [place] [address] Delbert Agustin MD [address] [place] [phone] Social History Tobacco Use Types Packs/Day Years Used Date Smoking Tobacco: Never Comments Unknown Sex and Gender Information Value Date Recorded Sex Assigned at Not on file Legal Sex Female 2:01 AM CDT Gender Identity Not on file Sexual Orientation Not on file documented as of this encounter Plan of Treatment Not on file documented as of this encounter Visit Diagnoses Diagnosis Nontoxic uninodular goiter documented in this encounter
--- OUTSIDE RECORDS SUMMARY | 2024-05-27 17:44 | XMS_ITS | Encounter Summary ---
Author Organization [facility] Address [address] [place] [address]. [place] [phone] [place], [place] [phone] Care Team Providers Care Network Administrator Name Role Phone Unavailable Primary Care Provider Unavailabl e Encounter Details Date Type Department Care Team (Latest Contact Info) Description 05/15/2015 Abstract [facility] Medical Group Social History Tobacco Use [...]
--- OUTSIDE RECORDS SUMMARY | 2024-05-27 17:44 | XMS_ITS | Encounter Summary ---
Author Organization [facility] Address [facility] [place] [address] [place] [address] Care Team Providers Care Shank Faker Name Role Phone Unavailable Primary Care Provider Unavailabl e Encounter Details Date Type Department Care Team (Late st Contact Info) Description 11/18/2014 Abstract [facility] Cardiopulmonary Services [address] [place] [phone] Rashaun Booker MD [address] [address] Social History Tobacco Use Types Packs/Day Years Used Date Smoking Tobacco: Never Comments Unknown Sex and Gender Information Value Date Recorded Sex Assigned at Not on file Legal Sex Female 2:01 AM CDT Gender Identity Not on file Sexual Orientation Not on file documented as of this encounter Plan of Treatment Not on file documented as of this encounter Visit Diagnoses Diagnosis Abnormal electrocardiogram Nonspecific abnormal electrocardiogram (ECG) (EKG) documented in this encounter
--- OUTSIDE RECORDS SUMMARY | 2024-05-27 17:44 | XMS_ITS | Encounter Summary ---
Author Organization [facility] Address [address] [place] [address]. [place] [address] [place] [address] Care Team Providers Care Documentum Consultant Name Role Phone Unavailable Primary Care Provider Unavailabl e Encounter Details Date Type Department Care Team (Late st Contact Info) Description 11/19/2014 Abstract [facility] [address] [place] [address] , Teri Xiao MD Social History Tobacco [...]
--- OUTSIDE RECORDS SUMMARY | 2024-05-27 17:44 | XMS_ITS | Encounter Summary ---
Author Organization [facility] Address [address] [place] [address]. [place], [place] [address] [place] [address] Care Team Providers Care Patent Attorney Name Role Phone Unavailable Primary Care Provider Unavailabl e Encounter Details Date Type Department Care Team (Latest Contact Info) Description 05/20/2015 Abstract [facility] Medical Group Wade Baird, HELP DESK ENGINEER Social History Tobacco Use Types Packs/Day [...] Procedure Name Priority Date/Time Associated Diagnosis Comments MRI CERV SPINE WO CON Routine 05/20/2015 2:39 PM MOVING PICTURE PRODUCER documented in this encounter Results * MRI CERV SPINE WO CON (05/20/2015 2:39 PM MOVING PICTURE PRODUCER) Anatomical Region Laterality Modality Spine Magnetic Resonan ce 05/20/2015 2:39 PM MOVING PICTURE PRODUCER 05/20/2015 2:39 PM MOVING PICTURE PRODUCER Narrative 05/20/2015 5:11 PM MOVING PICTURE PRODUCER JUSTINA ALMARAZ ORDERING MD: WADE BAIRD PHOTOGRAPHIC DEVELOPER AND PRINTER ?? ACCT: [id number] ?? ADMIT/SERVICE DATE: 05/20/15 DISCHARGE DATE: ?? : 1970 PT TYPE: REG CLI ?? SEX: F ORD SITE: [facility] ? STUDY DATE REPORT # ORDER # EXT ORDER ID ?? 05/20/15 [id number] ? PROCEDURE CODE PROCEDURE DESCRIPTION ? CSPWOC MRI CERVICAL SPINE WO ? CHART DOCUMENT ? DIVISION OF RADIOLOGY ? ACCESSION # ?EXAM DATE ? EXAM DESCRIPTION ?? [id number] ?05/20/2015 ?MRI CERVICAL SPINE WO ? IMAGING STUDIES: ? MRI CERVICAL SPINE WITHOUT CONTRAST 05/20/2015 ? INDICATION: ?NUMBNESS AND TINGLING ? COMPARISON: ?CT CERVICAL SPINE 05/07/2015 ? REDEMONSTRATION OF THYROID NODULES INCLUDING DOMINANT RIGHT THYROID ?? NODULE. ? NORMAL CERVICAL ALIGNMENT. ? VISUALIZED PORTION OF THE SPINAL CORD AND POSTERIOR FOSSA ARE ?? UNREMARKABLE. ? NORMAL VERTEBRAL BODY HEIGHTS. ? AT C2-C3, C3-C4, C4-C5 THERE'S NO DISC HERNIATION, SPINAL OR FORAMINAL ?? STENOSIS. ? AT C5-C6 THERE'S A LARGE POSTERIOR DISC OSTEOPHYTE COMPLEX TOUCHING THE ?? SPINAL CORD. ??THE LARGE POSTERIOR DISC HERNIATION EXTENDS THROUGH THE RIGHT ? NEURAL FORAMEN CAUSING MODERATE RIGHT FORAMINAL STENOSIS AND TOUCHES THE ?? ANTERIOR ASPECT OF THE SPINAL CORD. ? AT C6-C7 AND C7-T1 THERE'S NO DISC HERNIATION, SPINAL OR FORAMINAL ?? STENOSIS. ? IMPRESSION: ?? LARGE C5-C6 DISC OSTEOPHYTE COMPLEX WHICH TOUCHES THE SPINAL CORD AND ?? EXTENDS THROUGH THE RIGHT NEURAL FORAMEN CAUSING RIGHT FORAMINAL STENOSIS. ? ELECTRONICALLY SIGNED BY ?? KOSTAS ARRIOLA M.D. 05/20/2015 05:09 P ? ANS/RC ?? 05/20/201502:39 P ?? 05/20/2015 02:51 P ?? JOB NO: ??[id number] ??DOC NO: ??[id number] ?? CC: ?WADE BAIRD NP ? Procedure Note Md, Generic Conversion, - 03/22/2018 JUSTINA ALMARAZ ORDERING MD: WADE BAIRD ACCT: [id number] ADMIT/SERVICE DATE: 05/20/15 DISCHARGE DATE: : 1970 PT TYPE: REG CLI SEX: F ORD SITE: [facility] STUDY DATE REPORT # ORDER # EXT ORDER ID 05/20/15 [id number] PROCEDURE CODE PROCEDURE DESCRIPTION CSPWOC MRI CERVICAL SPINE WO CHART DOCUMENT DIVISION OF RADIOLOGY ACCESSION # EXAM DATE EXAM DESCRIPTION [id number] 05/20/2015 MRI CERVICAL SPINE WO IMAGING STUDIES: MRI CERVICAL SPINE WITHOUT CONTRAST 05/20/2015 INDICATION: NUMBNESS AND TINGLING COMPARISON: CT CERVICAL SPINE 05/07/2015 REDEMONSTRATION OF THYROID NODULES INCLUDING DOMINANT RIGHT THYROID NODULE. NORMAL CERVICAL ALIGNMENT. VISUALIZED PORTION OF THE SPINAL CORD AND POSTERIOR FOSSA ARE UNREMARKABLE. NORMAL VERTEBRAL BODY HEIGHTS. AT C2-C3, C3-C4, C4-C5 THERE'S NO DISC HERNIATION, SPINAL OR FORAMINAL STENOSIS. AT C5-C6 THERE'S A LARGE POSTERIOR DISC OSTEOPHYTE COMPLEX TOUCHING THE SPINAL CORD. THE LARGE POSTERIOR DISC HERNIATION EXTENDS THROUGH THERIGHT NEURAL FORAMEN CAUSING MODERATE RIGHT FORAMINAL STENOSIS AND TOUCHES THE ANTERIOR ASPECT OF THE SPINAL CORD. AT C6-C7 AND C7-T1 THERE'S NO DISC HERNIATION, SPINAL OR FORAMINAL STENOSIS. IMPRESSION: LARGE C5-C6 DISC OSTEOPHYTE COMPLEX WHICH TOUCHES THE SPINAL CORD AND EXTENDS THROUGH THE RIGHT NEURAL FORAMEN CAUSING RIGHT FORAMINALSTENOSIS. ELECTRONICALLY SIGNED BY KOSTAS ARRIOLA M.D. 05/20/2015 05:09 P ANS/RC 05/20/201502:39 P 05/20/2015 02:51 P JOB NO: [id number] DOC NO: [id number] CC: WADE BAIRD NP Wade Baird NP MRI Final Result documented in this encounter Visit Diagnoses Not on filedocumented in this encounter
--- OUTSIDE RECORDS SUMMARY | 2024-05-27 17:44 | XMS_ITS | Encounter Summary ---
Author Organization [facility] Address [address] [place] [address]. [place] [address] [place] [address] Care Team Providers Care Central Office Operator Name Role Phone Unavailable Primary Care Provider Unavailabl e Encounter Details Date Type Department Care Team (Late st Contact Info) Description 04/23/2015 Abstract [facility] Medical Group Family & Internal Medicine [facility] [address] [place] [address] [place] [address] [place] [address] Social History Tobacco Use Types Packs/Day Years Used Date Smoking Tobacco: Never Comments Unknown Sex and Gender Information Value Date Recorded Sex Assigned at Not on file Legal Sex Female 2:01 AM CDT Gender Identity Not on file Sexual Orientation Not on file documented as of this encounter Last Filed Vital Signs Vital Sign Reading Time Taken Comments Blood Pressure 112/64 04/23/2015 2:27 PM CASTING PLUG ASSEMBLER Pulse 70 04/23/2015 2:27 PM CASTING PLUG ASSEMBLER Temperature - - Respiratory Rate - - Oxygen Saturation - - Inhaled Oxygen Concentration - - Weight 94.3 kg (208 lb) 04/23/2015 2:27 PM CASTING PLUG ASSEMBLER Height 160 cm (5' 3 ) 04/23/2015 2:27 PM CASTING PLUG ASSEMBLER Body Mass Index 36.85 04/23/2015 2:27 PM CASTING PLUG ASSEMBLER documented in this encounter Progress Notes * Wade Baird NP - 04/23/2015 2:30 PM CST Reason For Visit Reason For Visit: Acute Visit Chief Complaint pt here c/o right arm pain that radiates down arm and causing numbness History of Present Illness HPI Free Text: 45 y/o female generally in good health here for c/o right arm pain and hand numbness with persistent numbness right thumb. seemed to start with right biceps pain several months ago. had not done anything unusual; then noted arm and hand numbness. can elicit numbness with leaning on right arm at times. denies neck and shoulder issues Arm Pain: Linh Ortiz presents with complaints of pain in the arms. Carpal Tunnel Syndrome Intake (Brief): The patient is right hand dominant. This condition is not related to a specific injury. Symptoms: arm pain, wrist pain, hand pain, awakening due to pain, numbness, weakness and decreased furnace erector strength, but no stiffness and no decreased range of motion. The patient is currently experiencing symptoms. Pain is located in the right forearm and in the right wrist. The pain radiates to the right palm and right fingers. The patient describes the pain as throbbing. Numbness is located in the thumbs, in the right wrist and in the right hand. Weakness is located in the right hand. The symptoms occur intermittently. The patient describes symptoms as worsening. 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 No relieving factors are noted. The patient is not currently being treated for this problem. The patient is having difficulty with sleep and work duties. Review of Systems Constitutional: Normal. ENT: normal. Cardiovascular: Normal (has had extensive cardiac workup recently as passed out at end of stress test. when doing a carotid US noted thyroid nodules that were biopsied. TSH normal). Respiratory: Normal. Active Problems 1. Abdominal pain, right upper [...] N; ; Last Updated By: Bernadine Chisholm; 04/23/2015 3:04:55 PM Allergies 1. No Known Drug Allergies Recorded By: Bernadine Chisholm; 10/04/2014 3:48:48 PM Vitals Recorded: 23Apr2015 02:27PM Heart Rate 70 Systolic 112 Diastolic 64 O2 Saturation 98 Height 5 ft 3 in Weight 208 lb BMI Calculated 36.85 BSA Calculated 1.97 Physical Exam Constitutional General appearance: No acute distress, well appearing and well nourished. Eyes Conjunctiva and lids: No swelling, erythema or discharge. Pupils and irises: Equal, round and reactive to light. Ears, Nose, Mouth, and Throat External inspection of ears and nose: Normal. Otoscopic examination: Tympanic membranes translucent with normal light reflex. Canals patent without erythema. Oropharynx: Normal with no erythema, edema, exudate or lesions. Pulmonary Respiratory effort: No increased work of breathing or signs of respiratory distress. Auscultation of lungs: Clear to auscultation. Cardiovascular Auscultation of heart: Normal rate and rhythm, normal S1 and S2, without murmurs. Examination of extremities for edema and/or varicosities: Normal. Lymphatic Palpation of lymph nodes in neck: No lymphadenopathy. Musculoskeletal Gait and station: Normal. Digits and nails: Normal without clubbing or cyanosis. Inspection/palpation of joints, bones, and muscles: Normal. no TTP elbow. Skin Skin and subcutaneous tissue: Normal without rashes or lesions. Neurologic Cranial nerves: Cranial nerves 2-12 intact. Phalen's and Tinel's negative. Psychiatric Orientation to person, place, and time: Normal. Mood and affect: Normal. Assessment 1. Carpal tunnel syndrome of right wrist (354.0) (G56.01) Plan Carpal tunnel syndrome of right wrist 1. Carpal Tunnel Wrist Stabilizer Miscellaneous; wear brace 20/12 until pain and numbness improve then continue to wear at bedtime Rx By: Wade Baird; Dispense: 0 Days ; #:1 Miscellaneous; Refill: 0; For: Carpal tunnel syndrome of right wrist; GISELE = N; Print Rx; Last Updated By: Coleen Thompson; 04/23/2015 3:12:44 PM script was given to patient 2. Schedule EMG/Nerve Conduction Study Right Upper Extremity Outpatient Follow-up Status: Hold For - Scheduling Requested for: 23Apr2015 Ordered; For: Carpal tunnel syndrome of right wrist; Ordered By: Wade Baird Performed: Due: [id number] 3. Position and use your computer correctly to avoid injury.; Status:Complete; Done: 23Apr2015 Ordered; For:Carpal tunnel syndrome of right wrist; Ordered By:Wade Baird; 4. Pre-printed Instructions given to patient; Status:Complete; Done: 23Apr2015 Ordered; For:Carpal tunnel syndrome of right wrist; Ordered By:Wade Baird; 5. Take a break from your work every 2 hours.; Status:Complete; Done: 23Apr2015 Ordered; For:Carpal tunnel syndrome of right wrist; Ordered By:Wade Baird; 6. We recommend that you stretch your hand muscles. Hold each stretch for 5 seconds ; do each stretch 5 times per set; do a set 3 times a day.; Status:Complete; Done: 23Apr2015 Ordered; For:Carpal tunnel syndrome of right wrist; Ordered By:Wade Baird; wear brace all the time until pain and numbness improve f/u after EMG/NC test Signatures Electronically signed by : Wade Baird NP; Apr 24 2015 5:00PM CASTING PLUG ASSEMBLER (Author) Electronically signed by : Tyler Nails M.D.; May 08 2015 11:40AM CASTING PLUG ASSEMBLER (Author) documented in this encounter Plan of Treatment Not on file documented as of this encounter Visit Diagnoses Not on filedocumented in this encounter
--- OUTSIDE RECORDS SUMMARY | 2024-05-27 17:44 | XMS_ITS | Encounter Summary ---
Author Organization [facility] Address [address] [place] [address]. [place] [address] [place] [address] Care Team Providers Care Hand Cutter Apprentice Name Role Phone Unavailable Primary Care Provider Unavailabl e Encounter Details Date Type Department Care Team (Late st Contact Info) Description 11/27/2014 Abstract [facility] [address] [place] [address] , Teri Xiao MD Social History Tobacco [...]
--- OUTSIDE RECORDS SUMMARY | 2024-05-27 17:44 | XMS_ITS | Encounter Summary ---
Author Organization [facility] Address [address] [place] [address]. [place] [address] [place] [address] Care Team Providers Care Bushel Girl Name Role Phone Unavailable Primary Care Provider Unavailabl e Encounter Details Date Type Department Care Team (Late st Contact Info) Description 01/31/2015 Abstract [facility] [address] [place] [address] Mary Collier MD [address] [place] [address] Social History Tobacco Use Types Packs/Day Years [...]
--- OUTSIDE RECORDS SUMMARY | 2024-05-27 17:44 | XMS_ITS | Encounter Summary ---
Author Organization [facility] Address [address] [place] [address]. [place] [phone] [place], [place] [phone] Care Team Providers Care Triage Assistant Name Role Phone Unavailable Primary Care Provider Unavailabl e Encounter Details Date Type Department Care Team (Latest Contact Info) Description 08/01/2020 Travel Social History Tobacco Use Types Packs/Day [...] have Coronavirus / COVID-19? No / Unsure 08/01/2020 3:38 PM PENCIL MAKER documented as of this encounter Plan of Treatment Not on file documented as of this encounter Visit Diagnoses Not on filedocumented in this encounter
--- OUTSIDE RECORDS SUMMARY | 2024-05-27 17:44 | XMS_ITS | Encounter Summary ---
Author Organization [facility] Address [facility] [place] [address] [place] [address] Care Team Providers Care District Court Justice Name Role Phone Unavailable Primary Care Provider Unavailabl e Encounter Details Date Type Department Care Team (Latest Contact Info) Description 05/21/2015 Abstract [facility] Medical Group , Teri Xiao MD Social History Tobacco Use Types Packs/Day Years Used Date Smoking Tobacco: Never Comments Unknown Sex and Gender Information Value Date Recorded Sex Assigned at Not on file Legal Sex Female 2:01 AM CDT Gender Identity Not on file Sexual Orientation Not on file documented as of this encounter Progress Notes * Wade Baird NP - 05/21/2015 8:37 AM CST Message Recorded as Task Date: 05/21/2015 07:10 AM, Created By: Wade Baird Task Name: Call Patient with results Assigned To: Wade Baird Regarding Patient: Justina Ortiz, Status: In Progress Comment: Wade Baird - 21 May 2015 7:10 AM Patient please notify patient she has a large bony growth on MRI that appears to be touching the spinal column. will refer her to NS for evaluation. Coleen Valerio - 21 May 2015 8:37 AM TASK EDITED pt informed of MRI and aware Signatures Electronically signed by : Coleen Thompson, ; May 21 2015 8:37AM BALL HOLDER (Author) * Wade Baird NP - 05/21/2015 7:10 AM CST Message please notify patient she has a large bony growth on MRI that appears to be touching the spinal column. will refer her to NS for evaluation. thanks Verified Results MRI C SPINE W/O 20May2015 02:39PM Wade Baird Test Name Result Flag Reference MRI C SPINE W/O (Report) JUSTINA ALMARAZ ORDERING MD: WADE BAIRD ACCT: [id number] ADMIT/SERVICE DATE: 05/20/15 DISCHARGE DATE: : 1970 PT TYPE: REG CLI SEX: F ORD SITE: [facility] STUDY DATE REPORT # ORDER # EXT ORDER ID 05/20/15 [id number] PROCEDURE CODE PROCEDURE DESCRIPTION CSPWOC MRI CERVICAL SPINE WO CHART DOCUMENT DIVISION OF RADIOLOGY ACCESSION # EXAM DATE EXAM DESCRIPTION [id number] 05/20/2015 MRI CERVICAL SPINE WO IMAGING STUDIES: [...] THE LARGE POSTERIOR DISC HERNIATION EXTENDS THROUGH THE RIGHT NEURAL FORAMEN CAUSING MODERATE RIGHT FORAMINAL STENOSIS AND TOUCHES THE ANTERIOR ASPECT OF THE SPINAL CORD. AT C6-C7 AND C7-T1 THERE'S NO DISC HERNIATION, SPINAL OR FORAMINAL STENOSIS. IMPRESSION: LARGE C5-C6 DISC OSTEOPHYTE COMPLEX WHICH TOUCHES THE SPINAL CORD AND EXTENDS THROUGH THE RIGHT NEURAL FORAMEN CAUSING RIGHT FORAMINAL STENOSIS. ELECTRONICALLY SIGNED BY KOSTAS ARRIOLA M.D. 05/20/2015 05:09 P ANS/RC 05/20/201502:39 P 05/20/2015 02:51 P JOB NO: [id number] DOC NO: [id number] CC: WADE BAIRD NP Plan Cervical disc disease, Radiculopathy of arm ?? Neurosurgery Referral. Outpatient please evaluate and treat for patient with radicular pain in arm with MRI showing osteophyte pressing on spinal column. Status: Active Requested for: 21May2015 of Visits Requested : 05 documented in this encounter Plan of Treatment Not on file documented as of this encounter Visit Diagnoses Not on filedocumented in this encounter
--- OUTSIDE RECORDS SUMMARY | 2024-05-27 17:44 | XMS_ITS | Encounter Summary ---
Author Organization [facility] Address [address] [place] [address]. [place], [place] [id number] [place], [place] [id number] Care Team Providers Care Sanitizer Name Role Phone Unavailable Primary Care Provider Unavailabl e Encounter Details Date Type Department Care Team (Latest Contact Info) Description 05/07/2015 Abstract [facility] Social History Tobacco Use Types Packs/Day Years Used Date Smoking Tobacco: Never Comments Unknown Sex and Gender Information Value Date Recorded Sex Assigned at Not on file Legal Sex Female 2:01 AM CDT Gender Identity Not on file Sexual Orientation Not on file documented as of this encounter Progress Notes * Wade Baird NP - 05/07/2015 8:32 AM CST Message Recorded as Task Date: 05/07/2015 08:10 AM, Created By: Tiffany Ruiz Task Name: Informational Assigned To: Coleen Thompson Regarding Patient: Linh Ortiz, Status: In Progress Comment: Tiffany Ruiz - 07 May 2015 8:10 AM TASK CREATED Pt's Rj calling for pt who has extreme pain in her arm, not sure if Wade wants to see her or send to the ER. Billie Collazo - 07 May 2015 8:14 AM TASK REASSIGNED: Previously Assigned To [facility] Nurse Team Coleen Thompson - 07 May 2015 8:31 AM TASK EDITED Spoke with Wade and was going to call out medication for pt. Called pt and spoke with the ,states they are in the ER due to Linh's arm pain and paged the pest control applicator doctor twice and got no response. Apoligized to the and told him that if she doesn't feel better to call and will get her in for an appt as soon as possible. Signatures Electronically signed by : Coleen Thompson, ; May 07 2015 8:32AM FAN BALANCER (Author) documented in this encounter Plan of Treatment Not on file documented as of this encounter Visit Diagnoses Not on filedocumented in this encounter
--- OUTSIDE RECORDS SUMMARY | 2024-05-27 17:44 | XMS_ITS | Encounter Summary ---
Author Organization [facility] Address [address] [place] [address]. [place], [place] [id number] [place] [address] Care Team Providers Care Centrifugal Operator Name Role Phone Unavailable Primary Care Provider Unavailabl e Encounter Details Date Type Department Care Team (Latest Contact Info) Description 01/15/2015 Abstract [facility] Medical [facility] Social History Tobacco Use Types Packs/Day Years Used Date Smoking Tobacco: Never Comments Unknown Sex and Gender Information Value Date Recorded Sex Assigned at Not on file Legal Sex Female 2:01 AM CDT Gender Identity Not on file Sexual Orientation Not on file documented as of this encounter Progress Notes * Marek Groves MD - 01/15/2015 1:02 PM CDT Message Message: FNA with u/s guidance biopsy scheduled in [place] for January 23 at 2pm. Message left with patient of appointment date and time. Plan 1. US ASP FINE NDL W/IMAGE GUIDE; Status:Active; Requested for:[id number] 02:00PM; Perform:[facility]; Order Comments:FNA Right thyroid nodule with u/s guidance biopsy (pathology present); Due:[id number]; Last Updated By:Maddison Cherry; 01/15/2015 1:04:10 PM;Ordered; For:Thyroid nodule; Ordered By:Marek Groves; Signatures Electronically signed by : Marek Groves M.D.; Jan 20 2015 12:33PM STATION BAGGAGE AGENT (Author) documented in this encounter Plan of Treatment Not on file documented as of this encounter Procedures Procedure Name Priority Date/Time Associated Diagnosis Comments US GD FNA Routine 01/23/2015 3:26 PM CDT documented in this encounter Results * US GD FNA (01/23/2015 3:26 PM CDT) Anatomical Region Laterality Modality NA Ultrasound 01/23/2015 3:26 PM CDT 01/23/2015 3:26 PM CDT Narrative 01/23/2015 4:22 PM CDT JUSTINA ORDAZ Ordering MD: SAURABH GROVES MD ?? Acct: [id number] ?? Admit/Service Date: 01/23/15 Discharge Date: ?? : 1970 Pt Type: REG CLI ?? Sex: F Ord Site: [facility] ? Study Date Report # Order # Ext Order ID ?? 01/23/15 [id number] ? Procedure Code Procedure Description ? ASPFNAWIMG US Asp Fine Ndl w Image Guide ? Attending Physician: ?? Saurabh Groves MD ?? Consulting Physician: ? Medical Imaging [phone] ? IND: ??RIGHT THYROID NODULE ? EXAM DATE: ??01/23/2015 ?? ORD PHY: ??Saurabh Groves ? EXAM TAHMINA: ??US ASP FINE NDL W IMAGE GUIDE ? MEDICAL IMAGING REPORT ? Chart Document ?? ULTRASOUND GUIDED THYROID ASPIRATION BIOPSY: ? Ultrasound guidance was provided for thyroid biopsy performed by Saurabh ?? MD Mirza. ? Images reveal a 3.5 x 2.0 cm solid mass within the right lobe of the ?? thyroid gland. ??A radiologist was not present for this procedure. ? Indications: ??Right thyroid nodule ?Electronically Signed By: ?Douglas Glaser M.D. 01/23/2015 04:20 P ?Douglas Glaser M.D. ?? TD:dw ?? DD: ??01/23/2015 03:26 P ?? DT: ??01/23/2015 03:45 P ? cc: ?Saurabh Groves MD ? Procedure Note Teri Hernandez MD - 03/23/2018 JUSTINA ORDAZ Ordering MD: SAURABH GROVES MD Acct: [id number] Admit/Service Date: 01/23/15 Discharge Date: : 1970 Pt Type: REG CLI Sex: F Ord Site: [facility] Study Date Report # Order # Ext Order ID 01/23/15 [id number] Procedure Code Procedure Description ASPFNAWIMG US Asp Fine Ndl w Image Guide Attending Physician: Saurabh Groves MD Consulting Physician: Medical Imaging [phone] IND: RIGHT THYROID NODULE EXAM DATE: 01/23/2015 ORD PHY: Saurabh Groves EXAM TAHMINA: US ASP FINE NDL W IMAGEGUIDE MEDICAL IMAGING REPORT Chart Document ULTRASOUND GUIDED THYROID ASPIRATION BIOPSY: Ultrasound guidance was provided for thyroid biopsy performed by Saurabh Groves MD. Images reveal a 3.5 x 2.0 cm solid mass within the right lobe of the thyroid gland. A radiologist was not present for this procedure. Indications: Right thyroid nodule Electronically Signed By: Douglas Glaser M.D. 01/23/201504:20 P Douglas Glaser M.D. TD:teresa P P cc: Saurabh Groves MD us Marek Groves MD ULTRASOUND Final Result documented in this encounter Visit Diagnoses Not on filedocumented in this encounter
--- OUTSIDE RECORDS SUMMARY | 2024-05-27 17:44 | XMS_ITS | Encounter Summary ---
Author Organization [facility] Address [address] [place] [address]. [place] [address] [place] [address] Care Team Providers Care Principal Cloud Architect Name Role Phone Unavailable Primary Care Provider Unavailabl e Encounter Details Date Type Department Care Team (Late st Contact Info) Description 05/07/2015 Abstract [facility] Emergency Room [address] [place], [place] [id number] Canelo Li MD [address] [address] Social History Tobacco Use Types Packs/Day Years Used Date Smoking Tobacco: Never Comments Unknown Sex and Gender Information Value Date Recorded Sex Assigned at Not on file Legal Sex Female 2:01 AM CDT Gender Identity Not on file Sexual Orientation Not on file documented as of this encounter Plan of Treatment Not on file documented as of this encounter Visit Diagnoses Diagnosis Radiculopathy Neuralgia, neuritis, and radiculitis, unspecified documented in this encounter
--- OUTSIDE RECORDS SUMMARY | 2024-05-27 17:44 | XMS_ITS | Encounter Summary ---
Author Organization [facility] Address [facility] [place] [address] [place] [address] Care Team Providers Care Sales And Catering Coordinator Name Role Phone Unavailable Primary Care Provider Unavailabl e Encounter Details Date Type Department Care Team (Late st Contact Info) Description 05/19/2015 Abstract [facility] Family & Internal Medicine [facility] [address] [place] [address] [place] [address] [place] [address] Social History Tobacco Use Types Packs/Day Years Used Date Smoking Tobacco: Never Comments Unknown Sex and Gender Information Value Date Recorded Sex Assigned at Not on file Legal Sex Female 2:01 AM CDT Gender Identity Not on file Sexual Orientation Not on file documented as of this encounter Last Filed Vital Signs Vital Sign Reading Time Taken Comments Blood Pressure 116/68 05/19/2015 2:29 PM BOILERMAKER Pulse 109 05/19/2015 2:29 PM BOILERMAKER Temperature - - Respiratory Rate - - Oxygen Saturation - - Inhaled Oxygen Concentration - - Weight 116.1 kg (256 lb) 05/19/2015 2:29 PM BOILERMAKER Height 160 cm (5' 3 ) 05/19/2015 2:29 PM BOILERMAKER Body Mass Index 45.35 05/19/2015 2:29 PM BOILERMAKER documented in this encounter Progress Notes * Wade Baird NP - 05/19/2015 3:00 PM CST Reason For Visit Reason For Visit: Acute Visit Chief Complaint pt here c/o sore throat and body aches History of Present Illness HPI Free Text: 45 y/o female with c/o S/T and fatigue for 3 days. also with rash on face which she has had in past. no new products, no fever Cold Symptoms: Linh Ortiz presents with complaints of cold symptoms. Associated symptoms include scratchy throat, sore throat, headache, fatigue and weakness, but no sneezing, no nasal congestion, no runny nose, no post nasal drainage, no hoarseness, no dry cough, no productive cough, no facial pressure, no facial pain, no plugged ear(s), no ear pain, no swollen lymph nodes, no wheezing, no shortness of breath, no nausea, no vomiting, no diarrhea, no fever and no chills. Rash (Brief): The patient is being seen for an initial evaluation of this episode of a rash. Symptoms: localized rash, pruritus and malaise, but no fatigue and no headache. Symptom Cluster Details: she reports the symptoms are unchanged. Associated Symptoms: sore throat, but no cough, no wheezing, no shortness of breath, no nausea and no vomiting. Review of Systems See HPI for pertinent positives. Active Problems 1. Abdominal pain, right upper quadrant (789.01) (R10.11) 2. Abnormal EKG (794.31) (R94.31) 3. Carpal tunnel syndrome of right wrist (354.0) (G56.01) 4. Radiculopathy of arm (723.4) (M54.10) 5. Thyroid nodule (241.0) (E04.1) Past Medical History 1. History of malignant neoplasm of cervix uteri (V10.41) (Z85.41) Surgical History 1. History of Gallbladder Surgery Family History Mother 1. Family history of rheumatoid arthritis (V17.7) (Z82.61) Family History 2. Family history of Coronary bypass graft mechanical complication Social History ? Never a smoker Current Meds 1. Carpal Tunnel Wrist Stabilizer Miscellaneous; wear brace 20/12 until pain and numbness improve then continue to wear at bedtime; Therapy: 23Apr2015 to (Last Rx:23Apr2015) Ordered Rx By: Wade Baird; Dispense: 0 Days ; #:1 Miscellaneous; Refill: 0; For: Carpal tunnel syndrome of right wrist; GISELE = N; Print Rx; Last Updated By: Coleen Thompson; 04/23/2015 3:12:44 PM 2. Gabapentin 300 MG Oral Capsule; TAKE 1 CAPSULE BY MOUTH THREE TIMES A DAY; Therapy: [id number] to (Evaluate:19Lgb7135) Requested for: 71Lem2382; Last Rx:[id number] Ordered Rx By: Wade Baird; Dispense: 30 Days ; #:90 Capsule; Refill: 0; For: Carpal tunnel syndrome of right wrist; GISELE = N; Verified Transmission to [facility]; Last Updated By: Vijay Chatman; 05/13/2015 11:45:17 AM 3. Hydrocodone-Acetaminophen 5-325 MG Oral Tablet; Take 1 tablet every 4 to 6 hours as needed; Therapy: 63Rju2462 to (Last Rx:[id number]) Ordered Rx By: Wade Baird; Dispense: 0 Days ; #:20 Tablet; Refill: 0; For: Carpal tunnel syndrome of right wrist; GISELE = N; Print Rx; Last Updated By: Coleen Thompson; 05/09/2015 12:01:18 PM Allergies 1. No Known Drug Allergies Recorded By: Bernadine Chisholm; 10/04/2014 3:48:48 PM Vitals Recorded: 19May2015 02:29PM Temperature 98.9 F Heart Rate 109 Systolic 116 Diastolic 68 O2 Saturation 98 Height 5 ft 3 in Weight 256 lb BMI Calculated 45.35 BSA Calculated 2.15 Physical Exam Constitutional General appearance: No acute distress, well appearing and well nourished. Eyes Conjunctiva and lids: No swelling, erythema or discharge. Pupils and irises: Equal, round and reactive to light. Ears, Nose, Mouth, and Throat External inspection of ears and nose: Normal. Otoscopic examination: Tympanic membranes translucent with normal light reflex. Canals patent without erythema. Oropharynx: Abnormal. red without lesions or exudate. Pulmonary Respiratory effort: No increased work of breathing or signs of respiratory distress. Auscultation of lungs: Clear to auscultation. Cardiovascular Auscultation of heart: Normal rate and rhythm, normal S1 and S2, without murmurs. Lymphatic Palpation of lymph nodes in neck: Abnormal. mildly enlarged and tender ant cerv nodes. Musculoskeletal Gait and station: Normal. Skin Skin and subcutaneous tissue: Normal without rashes or lesions. Examination of the skin for lesions: Abnormal. red papulopustular rash face, small discrete lesions. Neurologic Cranial nerves: Cranial nerves 2-12 intact. Psychiatric Orientation to person, place, and time: Normal. Mood and affect: Normal. Assessment 1. Acute pharyngitis (462) (J02.9) 2. Atopic dermatitis (691.8) (L20.9) Plan Acute pharyngitis 1. Cephalexin 500 MG Oral Capsule; TAKE 1 CAPSULE 3 TIMES DAILY UNTIL GONE Rx By: Wade Baird; Dispense: 10 Days ; #:1 X 30 Capsule Bottle; Refill: 0; For: Acute pharyngitis; GISELE = N; Verified Transmission to [facility]; Last Updated By: Vijay Chatman; 05/19/2015 2:46:54 PM 2. Avoid exposure to cigarette smoke.; Status:Complete; Done: [id number] Ordered; For:Acute pharyngitis; Ordered By:Wade Baird; 3. Drink plenty of fluids.; Status:Complete; Done: [id number] Ordered; For:Acute pharyngitis; Ordered By:Wade Baird; 4. Gargle with warm salt water for 5 minutes every 4 hours.; Status:Complete; Done: 16Xgb5123 Ordered; For:Acute pharyngitis; Ordered By:Wade Baird; 5. Gargle with warm water for 5 minutes every 4 hours.; Status:Complete; Done: 83Utx6573 Ordered; For:Acute pharyngitis; Ordered By:Wade Baird; 6. Good hand washing is one of the best ways to control the spread of germs.; Status:Complete; Done: 57Wvp2061 Ordered; For:Acute pharyngitis; Ordered By:Wade Baird; 7. Stay home from work or school until your condition is improved.; Status:Complete; Done: 84Pkf9143 Ordered; For:Acute pharyngitis; Ordered By:Wade Baird; 8. Take steps to prevent passing germs to others.; Status:Complete; Done: 23Uay7555 Ordered; For:Acute pharyngitis; Ordered By:Wade Baird; 9. The following home treatments may soothe a sore throat.; Status:Complete; Done: 03Qvh3745 Ordered; For:Acute pharyngitis; Ordered By:Wade Baird; Atopic dermatitis 10. Desonide 0.05 % External Cream; APPLY SPARINGLY TO AFFECTED AREA(S) TWICE DAILY for up to two weeks Rx By: Wade Baird; Dispense: 0 Days ; #:1 X 60 GM Tube; Refill: 0; For: Atopic dermatitis; GISELE =N; Verified Transmission to [facility]; Last Updated By: Vijay Chatman; 05/19/2015 2:46:55 PM mild soap to wash face, avoid products with scent and dye avoid hot water change toothbrush in 3 days Signatures Electronically signed by : Wade Baird NP; May 19 2015 7:16PM BOILERMAKER (Author) Electronically signed by : Tyler Nails M.D.; Jun 02 2015 7:23AM BOILERMAKER (Author) * Wade Baird NP - 05/19/2015 9:04 AM CST Message Recorded as Task Date: 05/19/2015 08:10 AM, Created By: Alissa Capone Task Name: Call Back [facility] Regarding Patient: Linh Ortiz Jeronimo, Status: In Progress Comment: Alissa Capone - 19 May 2015 8:10 AM TASK CREATED Caller: Self; pt would like to talk to Coleen about her Gabapentin prescription. she can be reached at the number on file. Coleen Thompson - 19 May 2015 9:04 AM TASK EDITED Spoke with pt and had questions if gabapentin caused side effects like sore throat and body aches. Scheduled an appt for today 3:00. Signatures Electronically signed by : Coleen Thompson, ; May 19 2015 9:04AM BOILERMAKER (Author) documented in this encounter Plan of Treatment Not on file documented as of this encounter Visit Diagnoses Not on filedocumented in this encounter
--- OUTSIDE RECORDS SUMMARY | 2024-05-27 17:44 | XMS_ITS | Encounter Summary ---
Author Organization [facility] Address [address] [place] [address]. [place], [place] [id number] [place], [place] [id number] Care Team Providers Care Computer Customer Support Specialist Name Role Phone Unavailable Primary Care Provider Unavailabl e Encounter Details Date Type Department Care Team (Late st Contact Info) Description 01/04/2018 Abstract [facility] [address] [place] [address] , Generic Conversion, Social History Tobacco Use Types Packs/Day Years [...]
--- OUTSIDE RECORDS SUMMARY | 2024-05-27 17:44 | XMS_ITS | Encounter Summary ---
Author Organization [facility] Address [address] [place] [address]. [place] [id number] [place], [place] [id number] Care Team Providers Care Calender Inspector Name Role Phone Unavailable Primary Care Provider Unavailabl e Encounter Details Date Type Department Care Team (Late st Contact Info) Description 05/20/2015 Abstract [facility] Diagnostic Imaging [address] [place] [address] Wade Baird, INSTRUCTOR CREELER Social History Tobacco Use Types Packs/Day Years Used Date Smoking Tobacco: Never Comments Unknown Sex and Gender Information Value Date Recorded Sex Assigned at Not on file Legal Sex Female 2:01 AM CDT Gender Identity Not on file Sexual Orientation Not on file documented as of this encounter Plan of Treatment Not on file documented as of this encounter Visit Diagnoses Diagnosis Radiculopathy of cervical region Brachial neuritis or radiculitis nos documented in this encounter
--- OUTSIDE RECORDS SUMMARY | 2024-05-27 17:44 | XMS_ITS | Encounter Summary ---
Author Organization [facility] Address [address] [place] [address]. [place], [place] [address] [place] [address] Care Team Providers Care Superintendent General Name Role Phone Unavailable Primary Care Provider Unavailabl e Encounter Details Date Type Department Care Team (Latest Contact Info) Description 05/06/2015 Abstract [facility] Medical Group Social History Tobacco Use Types Packs/Day Years Used Date Smoking Tobacco: Never Comments Unknown Sex and Gender Information Value Date Recorded Sex Assigned at Not on file Legal Sex Female 2:01 AM CDT Gender Identity Not on file Sexual Orientation Not on file documented as of this encounter Progress Notes * Wade Baird NP - 05/06/2015 9:22 AM CST Message Recorded as Task Date: 05/06/2015 08:18 AM, Created By: Ana Cadena Task Name: Informational Assigned To[facility] Regarding Patient: Linh Ortiz, Status: Active Comment: Ana Cadena - 06 May 2015 8:18 AM TASK CREATED Pt was [facility] in [place], pt was given Lyrica 75mg BID and Motrin 800mg q 8 hr. Pt will be coming in prior to her Lyrica rx running out. Signatures Electronically signed by : Coleen Thompson, ; May 06 2015 9:22AM CAVALRY OFFICER (Author) documented in this encounter Plan of Treatment Not on file documented as of this encounter Visit Diagnoses Not on filedocumented in this encounter
--- OUTSIDE RECORDS SUMMARY | 2024-05-27 17:44 | XMS_ITS | Encounter Summary ---
Author Organization [facility] Address [address] [place] [address]. [place] [id number] [place] [address] Care Team Providers Care Lighting Fixtures Decorator Name Role Phone Unavailable Primary Care Provider Unavailabl e Encounter Details Date Type Department Care Team (Latest Contact Info) Description 04/04/2018 Scan [facility] , Teri Xiao MD [...]
--- OUTSIDE RECORDS SUMMARY | 2024-05-27 17:44 | XMS_ITS | Encounter Summary ---
Author Organization [facility] Address [address] [place] [address]. [place] [phone] [place], [place] [id number] Care Team Providers Care Skydiving Instructor Name Role Phone Unavailable Primary Care Provider Unavailabl e Encounter Details Date Type Department Care Team (Late st Contact Info) Description 07/04/2017 Abstract [facility] Medical Group Family & Internal Medicine [facility] [address] [place] [address] Chantale Garcia APNP Social History Tobacco Use Types Packs/Day Years [...] Comments Blood Pressure 104/80 07/04/2017 2:48 PM DIRECTOR OF COMMUNICATIONS Pulse 94 07/04/2017 2:48 PM DIRECTOR OF COMMUNICATIONS Temperature - - Respiratory Rate - - Oxygen Saturation - - Inhaled Oxygen Concentration - - Weight 103.1 kg (227 lb 6.1 oz) 07/04/2017 2:48 PM DIRECTOR OF COMMUNICATIONS Height 160 cm (5' 3 ) 07/04/2017 2:48 PM DIRECTOR OF COMMUNICATIONS Body Mass Index 40.28 07/04/2017 2:48 PM DIRECTOR OF COMMUNICATIONS documented in this encounter Progress Notes * SYDNI Vasquez - 07/04/2017 4:06 PM CST Verified Results *Influenza A + B Test In Office [id number] 03:38PM Chantale Garcia Test Name Result Flag Reference Flu A Negative Flu B Negative Internal QC Verified Yes * SYDNI Vasquez - 07/04/2017 2:40 PM CST Reason For Visit Reason For Visit: Acute Visit Chief Complaint c/o coughing- prod occ blood. onset- Tuesday. low grade temp, no runny nose, sinus pressure. no st, no earache. achey. History of Present Illness Cough: Linh Ortiz presents with complaints of gradual onset of constant episodes of moderate cough, described as loose and productive. Episodes started about 3 days ago. She is currently experiencing cough. Her symptoms are reportedly caused by cold symptoms. Symptoms are improved by warm drinks, cough drops, cough medicine and NSAIDs. Symptoms are made worse by activity and lying down. Symptomsare unchanged. 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 Risk Factors: exposure to ill person. Associated symptoms include chills, stuffy nose, myalgias, postnasal drainage and headache. Review of Systems See HPI for pertinent positives. Constitutional: feeling poorly, chills, feeling tired and headache. Cardiovascular: Normal. Respiratory: cough. Gastrointestinal: Normal. Genitourinary: Normal. Integumentary: Normal. Musculoskeletal: Normal. Neurological: Normal. Psychiatric: Normal. Active Problems 1. Cervical disc disease (722.91) (M50.90) 2. Radiculopathy of arm (723.4) (M54.10) 3. Thyroid nodule (241.0) (E04.1) Past Medical History 1. History of Abdominal pain, right upper quadrant (789.01) (R10.11) 2. History of Carpal tunnel syndrome of right wrist (354.0) (G56.01) 3. History of abnormal electrocardiography (V12.59) (Z86.79) 4. History of acute pharyngitis (V12.69) (Z87.09) 5. History of atopic dermatitis (V13.3) (Z87.2) 6. History of malignant neoplasm of cervix uteri (V10.41) (Z85.41) Surgical History 1. History of Gallbladder Surgery Family History Mother 1. Family history of rheumatoid arthritis (V17.7) (Z82.61) Family History 2. Family history of Coronary bypass graft mechanical complication Social History ? Never a smoker Current Meds 1. Gabapentin 300 MG Oral Capsule; TAKE 1 CAPSULE BY MOUTH THREE TIMES A DAY; Therapy: [id number] to (Evaluate:10Aug2015) Requested for: 11Jun2015; Last Rx:11Jun2015 Ordered Rx By: Wade Baird; Dispense: 30 Days ; #:90 Capsule; Refill: 1; For: PMH: Carpal tunnel syndromeof right wrist; GISELE = N; Verified Transmission to [facility]; Last Updated By: Vijay Chatman; 07/04/2017 2:55:11 PM 2. Gabapentin 300 MG Oral Capsule; TAKE 1 CAPSULE EVERY OTHER DAY; Therapy: 04Jul2017 to Recorded Rx By: Kt Ruiz; Dispense: 0 Days ; #: Sufficient Capsule; Refill: 0; For: Cervical discdisease; GISELE = N; Record; Last Updated By: Jasmin Patel; 07/04/2017 2:55:11 PM Allergies 1. No Known Drug Allergies Recorded By: Bernadine Chisholm; 10/04/2014 3:48:48 PM Vitals Recorded: 04Jul2017 02:48PM Temperature 98.1 F Heart Rate 94 Respiration 19 Systolic 104 Diastolic 80 O2 Saturation 97 Height 5 ft 3 in Weight 227 lb 6 oz BMI Calculated 40.28 BSA Calculated 2.04 Physical Exam Constitutional General appearance: Abnormal. acutely ill, uncomfortable and appears tired. Ears, Nose, Mouth, and Throat External inspection of ears and nose: Normal. Otoscopic examination: Tympanic membranes translucent with normal light reflex. Canals patent without erythema. Oropharynx: Normal with no erythema, edema, exudate or lesions. Pulmonary Respiratory effort: Abnormal. Respiratory rate: normal at 19 breaths per minute. Assessment of respiratory effort revealed normal rhythm and effort. Respiratory Findings: wet cough. Auscultation of lungs: Clear to auscultation. Cardiovascular Auscultation of heart: Normal rate and rhythm, normal S1 and S2, without murmurs. Abdomen Abdomen: Non-tender, no masses. Lymphatic Palpation of lymph nodes in neck: No lymphadenopathy. Musculoskeletal Gait and station: Normal. Psychiatric Orientation to person, place, and time: Normal. Mood and affect: Normal. Results/Data *Influenza A + B Test In Office 04Jul2017 03:38PM Chantale Garcia Test Name Result Flag Reference Flu A Negative Flu B Negative Internal QC Verified Yes Assessment 1. BMI 40.0-44.9, adult (V85.41) (Z68.41) 2. Acute URI (465.9) (J06.9) Plan Acute URI 1. Azithromycin 250 MG Oral Tablet; TAKE 2 TABLETS ON DAY 1 THEN TAKE 1 TABLET A DAY FOR 4 DAYS Rx By: Chantale Garcia; Dispense: 0 Days ; #:6 Tablet; Refill: 1; For: Acute URI; GISELE = N; Sent To:[facility] 2. PredniSONE 20 MG Oral Tablet; TAKE 2 TABLET Daily Rx By: Chantale Garcia; Dispense: 4 Days ; #:8 Tablet; Refill: 0; For: Acute URI; GISELE = N; Sent To:[facility] Health Maintenance 3. Stop: Flulaval Quadrivalent 0.5 ML Intramuscular Suspension Prefilled Syringe For: Health Maintenance; Ordered By:Chantale Garcia; Effective Date:04Jul2017; Last Updated By: Jasmin Patel; 07/04/2017 2:56:31 PM Discussion/Summary URI- Discussed Abx therapy oral steroid and use of steroid nasal spray. Encouraged to increase oralfluid intake, rest and continued use of OC medication for added symptom relief. FU PRN Signatures Electronically signed by : Chantale Garcia NP; Jul 04 2017 3:42PM DIRECTOR OF COMMUNICATIONS (Author) documented in this encounter Plan of Treatment Not on file documented as of this encounter Procedures Procedure Name Priority Date/Time Associated Diagnosis Comments INFLUENZA A & B Routine 07/04/2017 3:38 PM DIRECTOR OF COMMUNICATIONS documented in this encounter Results * INFLUENZA A & B (07/04/2017 3:38 PM DIRECTOR OF COMMUNICATIONS) INFULENZA A AB Negative [facility] OUP TO EPIC CONVERSION INFLUENZA B AB Negative [facility] OUP TO EPIC CONVERSION Internal Control: Yes [facility] TO EPIC CONVERSION 07/04/2017 3:38 PM DIRECTOR OF COMMUNICATIONS 07/04/2017 3:38 PM DIRECTOR OF COMMUNICATIONS Narrative [facility] TO EPIC CONVERSION - 07/04/2017 3:38 PM DIRECTOR OF COMMUNICATIONS Result Communication: Discussed results with patient us Chantale TROY MICROBIOLOGY - GENERAL ORDER MAX Final Result [facility] TO EPIC CONVERSION documented in this encounter Visit Diagnoses Not on filedocumented in this encounter
--- OUTSIDE RECORDS SUMMARY | 2024-05-27 17:44 | XMS_ITS | Encounter Summary ---
Author Organization [facility] Address Pending sale to [facility]. [place], [place] [address] [place], [place] [id number] Care Team Providers Care Vacuum Bottle Assembler Name Role Phone Unavailable Primary Care Provider Unavailabl e Encounter Details Date Type Department Care Team (Latest Contact Info) Description 11/27/2014 Abstract [facility] Medical Group Wade Tineo, VERA Social History Tobacco Use Types Packs/Day Years Used Date Smoking Tobacco: Never Comments Unknown Sex and Gender Information Value Date Recorded Sex Assigned at Not on file Legal Sex Female 2:01 AM CDT Gender Identity Not on file Sexual Orientation Not on file documented as of this encounter Progress Notes * Generic Conversion MD Mary - 11/27/2014 4:07 PM CDT Message Recorded as Task Date: 11/27/2014 03:08 PM, Created By: Alissa Capone Task Name: Follow Up [facility] Nurse Team Regarding Patient: Linh Ortiz, Status: Active Comment: Alissa Capone - 27 Nov 2014 3:08 PM TASK CREATED Caller: Joseph Cardiov[facility] rec'd call from [facility] stating the patient had a carotid ultrasound done today at [facility]. they just want to make sure that we rec'd the report because a thyroid nodule was detected. I told her that there is nothing in the chart yet so she is going to go ahead and re-fax the report. please keep an eye out for that. Bernadine Chisholm - 27 Nov 2014 4:07 PM TASK EDITED never received the report. Went into [facility] and printed off the report and gave to Wade tineo. Signatures Electronically signed by : Bernadine Chisholm, L.P.N.; Nov 27 2014 4:07PM FOOD SERVICE TECHNICIAN (Author) documented in this encounter Plan of Treatment Not on file documented as of this encounter Visit Diagnoses Not on filedocumented in this encounter
--- OUTSIDE RECORDS SUMMARY | 2024-05-27 17:44 | XMS_ITS | Encounter Summary ---
Author Organization [facility] Address [address] [place] [address]. [place] [phone] [place], [place] [id number] Care Team Providers Care Assistant Professor Of Philosophy Name Role Phone Unavailable Primary Care Provider Unavailabl e Encounter Details Date Type Department Care Team (Latest Contact Info) Description 05/05/2015 Abstract [facility] Medical Group Social History [...]
--- OUTSIDE RECORDS SUMMARY | 2024-05-27 17:44 | XMS_ITS | Encounter Summary ---
Author Organization [facility] Address [address] [place] [address]. [place] [id number] [place], [place] [id number] Care Team Providers Care Electrical Drafter Name Role Phone Unavailable Primary Care Provider Unavailabl e Encounter Details Date Type Department Care Team (Late st Contact Info) Description 11/27/2014 Fernando [facility] [address] [place] [address] , Teri Xiao MD Social History Tobacco [...]
--- OUTSIDE RECORDS SUMMARY | 2024-05-27 17:44 | XMS_ITS | Encounter Summary ---
Author Organization [facility] Address [address] [place] [address]. [place] [phone] [place] [address] Care Team Providers Care Office Professionals Name Role Phone Unavailable Primary Care Provider Unavailabl e Encounter Details Date Type Department Care Team (Latest Contact Info) Description 06/09/[address] [facility] Medical Group Wade Baird, LENS BLOCKER Social History Tobacco Use Types Packs/Day Years [...]
--- OUTSIDE RECORDS SUMMARY | 2024-05-27 17:44 | XMS_ITS | Encounter Summary ---
Author Organization [facility] Address [address] [place] [address]. [place], [place] [address] [place] [address] Care Team Providers Care Telegrapher Agent Name Role Phone Unavailable Primary Care Provider Unavailabl e Encounter Details Date Type Department Care Team (Latest Contact Info) Description 08/01/2020 3:39 PM LABORATORY MILLER - 08/01/2020 11:59 PM LABORATORY MILLER Hospital Encounter [facility] [id number] [place] [address] Katelyn Page, SYDNI [address] [place], [place] [phone] Discharge Disposition: Home or Self Care (Routine Discharge) Social History Tobacco Use Types Packs/Day Years [...] COVID-19? No / Unsure 08/01/2020 3:38 PM LABORATORY MILLER documented as of this encounter Plan of Treatment Not on file documented as of this encounter Visit Diagnoses Diagnosis Need for prophylactic vaccination against viral disease- Primary Need for prophylactic vaccination and inoculation against other viral diseases documented in this encounter
--- OUTSIDE RECORDS SUMMARY | 2024-05-27 17:44 | XMS_ITS | Encounter Summary ---
Author Organization [facility] Address [address] [place] [address]. [place], [place] [address] [place] [address] Care Team Providers Care Director Of Strategic Sourcing Name Role Phone Unavailable Primary Care Provider Unavailabl e Encounter Details Date Type Department Care Team (Latest Contact Info) Description 07/04/2020 5:20 PM PUBLIC HEALTH AIDES TEACHER - 07/04/2020 11:59 PM PUBLIC HEALTH AIDES TEACHER Hospital Encounter [facility] [id number] [place] [address] Azeem Clemente MD Discharge Disposition: Home or Self Care (Routine [...] COVID-19? No / Unsure 07/04/2020 5:18 PM PUBLIC HEALTH AIDES TEACHER documented as of this encounter Plan of Treatment Not on file documented as of this encounter Visit Diagnoses Diagnosis Need for prophylactic vaccination against viral disease- Primary Need for prophylactic vaccination and inoculation against other viral diseases documented in this encounter
--- OUTSIDE RECORDS SUMMARY | 2024-05-27 17:44 | XMS_ITS | Encounter Summary ---
Author Organization [facility] Address [address] [place] [address]. [place], [place] [phone] [place] [address] Care Team Providers Care Thermodynamics Professor Name Role Phone Unavailable Primary Care Provider Unavailabl e Encounter Details Date Type Department Care Team (Latest Contact Info) Description 06/11/2015 Abstract [facility] Medical Group Social History Tobacco Use Types Packs/Day Years Used Date Smoking Tobacco: Never Comments Unknown Sex and Gender Information Value Date Recorded Sex Assigned at Not on file Legal Sex Female 2:01 AM CDT Gender Identity Not on file Sexual Orientation Not on file documented as of this encounter Progress Notes * Generic Conversion MD Mary - 06/11/2015 4:54 PM CST Message Recorded as Task Date: 06/11/2015 03:55 PM, Created By: Alissa Capone Task Name: Renew [facility]ication [facility] Regarding Patient: Linh Ortiz, Status: Active Comment: Alissa Capone - 11 Jun 2015 3:55 PM TASK CREATED Caller: Self; pt states she saw a neurosurgeon and he wants her to stay on the Gabapentin. she would like us to send refill to [facility]. please call her if rx won't be refilled. Bernadine Chisholm - 11 Jun 2015 4:55 PM TASK EDITED video games storywriter spoke to Wade Baird and she said that is fine. Prescription sent to [facility] in [place]. Plan 1. Gabapentin 300 MG Oral Capsule; TAKE 1 CAPSULE BY MOUTH THREE TIMES A DAY Rx By: Wade Baird; Dispense: 30 Days ; #:90 Capsule; Refill: 1; For: Carpal tunnel syndrome of right wrist; GISELE = N; [facility]; Last Updated By: Bernadine Chisholm; 06/11/2015 4:55:07 PM Signatures Electronically signed by : Bernadine Chisholm L.P.N.; Jun 11 2015 4:56PM ELECTRONICS DESIGN ENGINEER (Author) documented in this encounter Plan of Treatment Not on file documented as of this encounter Visit Diagnoses Not on filedocumented in this encounter
--- OUTSIDE RECORDS SUMMARY | 2024-05-27 17:44 | XMS_ITS | Encounter Summary ---
Author Organization [facility] Address [address] [place] [address]. [place] [phone] [place] [address] Care Team Providers Care Engineering Programmer Name Role Phone Unavailable Primary Care Provider Unavailabl e Encounter Details Date Type Department Care Team (Latest Contact Info) Description 12/16/2014 Abstract [facility] Medical Group Wade Baird, SHOVEL HANDLE ASSEMBLER Social History Tobacco Use Types Packs/Day Years [...]
--- OUTSIDE RECORDS SUMMARY | 2024-05-27 17:44 | XMS_ITS | Encounter Summary ---
Author Organization [facility] Address [address] [place] [address]. [place] [address] [place] [address] Care Team Providers Care Sheet Metal Pattern Cutter Name Role Phone Unavailable Primary Care Provider Unavailabl e Encounter Details Date Type Department Care Team (Latest Contact Info) Description 01/23/2015 Abstract [facility] Medical Group Marek Blue MD [address] [facility] [place] [address] Social History Tobacco Use Types Packs/Day Years [...] Procedure Name Priority Date/Time Associated Diagnosis Comments CYTOLOGY GENERIC Routine 01/23/2015 12:0 0 AM CDT documented in this encounter Results * CYTOLOGY GENERIC (01/23/2015 12:00 AM CDT) COPATH REPORT CYTO ? - Non-Gynecologic al Cytology Report Patient Name: JUSTINA ORDAZ Med. Rec. #:[id number] : 1970 (Age: 44) Gender: F Physician(s): Saurabh Blue Location: [facility] Room Number: Billing #: [id number] Copy To: Collected: 01/23/2015 Received: 01/23/2015 Reported: 01/24/2015 Specimen(s) Thyroid, Fine Needle Aspiration, Right Final Pathologic Diagnosis Six smears and two thin prep slides examine. RIGHT INFERIOR THYROID NODULE (3.5 x 2 cm DIAMETER), ULTRASOUND GUIDED FINE NEEDLE ASPIRATION: ? NEGATIVE. ??NO EVIDENCE OF MALIGNANCY. ? The aspirate includes abundant colloid, histiocytes, and a mixture of uniform follicular cells and Hurthle cells ? in a pattern consistent with a cellular benign thyroid nodule. Imaging follow-up is recommended. Comment Per imaging report, there is diminished uptake of radioiodine tracer in this nodule compared to the remainder of the thyroid. 01/23/2015 Electronical ly Signed Out ByAleja Troncoso MD Clinical History Right thyroid nodule Gross Description Received from 4 passes are 6 direct smears (3 pap and 3 diff quick) and 2 blood tinged vials of cytolyte from which 2 thin preps are made. IMMEDIATE INTERPRETATION: Passes 1-3 ADEQUATE /L Billing Fee Code(s): 75058 ??SJB, 60128 B [facility] TO EPIC CONVERSION 01/23/2015 01/23/2015 Narrative [facility] TO EPIC CONVERSION - 01/23/2015 11:39 AM CDT Result Communication: No patient communication needed at this time us Marek Blue MD PATHOLOGY/CYTOLOGY ORDERABLES Final Result [facility] TO EPIC CONVERSION documented in this encounter Visit Diagnoses Not on filedocumented in this encounter
--- OUTSIDE RECORDS SUMMARY | 2024-05-27 17:44 | XMS_ITS | Encounter Summary ---
Author Organization [facility] Address [address] [place] [address]. [place] [phone] [place], [place] [phone] Care Team Providers Care Fare Collector Name Role Phone Unavailable Primary Care Provider Unavailabl e Encounter Details Date Type Department Care Team (Latest Contact Info) Description 12/13/2014 Abstract [facility] Medical Group Social History Tobacco Use [...]
--- OUTSIDE RECORDS SUMMARY | 2024-05-27 17:44 | XMS_ITS | Encounter Summary ---
Author Organization [facility] Address [address] [place] [address]. [place] [address] [place] [address] Care Team Providers Care Energy Systems Engineer Name Role Phone Unavailable Primary Care Provider Unavailabl e Encounter Details Date Type Department Care Team (Late st Contact Info) Description 01/23/2015 Abstract [facility] Diagnostic Imaging [address] [place] [address] Marek Blue MD [address] [facility] [place] [address] Social History Tobacco Use Types Packs/Day Years [...]
--- OUTSIDE RECORDS SUMMARY | 2024-05-27 17:44 | XMS_ITS | Encounter Summary ---
Author Organization [facility] Address [address] [place] [address]. [place] [phone] [place], [place] [id number] Care Team Providers Care Parish Visitor Name Role Phone Unavailable Primary Care Provider Unavailabl e Encounter Details Date Type Department Care Team (Late st Contact Info) Description 04/02/2017 [place] [address] , Generic Conversion, Social History Tobacco Use [...]
--- OUTSIDE RECORDS SUMMARY | 2024-05-27 17:44 | XMS_ITS | Encounter Summary ---
Author Organization [facility] Address [address] [place] [address]. [place] [address] [place] [address] Care Team Providers Care Brine Well Operator Name Role Phone Unavailable Primary Care Provider Unavailabl e Encounter Details Date Type Department Care Team (Late st Contact Info) Description 03/06/2018 Abstract [facility] Diagnostic Imaging [address] [place] [address] Malvin Vargas, LEATHER BELT SHAPER [address] [place] [address] Social History Tobacco Use Types [...] as of this encounter Visit Diagnoses Diagnosis Cyst of right ovary Other and unspecified ovarian cyst documented in this encounter
--- OUTSIDE RECORDS SUMMARY | 2024-05-27 17:44 | XMS_ITS | Encounter Summary ---
Author Organization [facility] Address [address] [place] [address]. [place], [place] [address] [place] [address] Care Team Providers Care Marinator Name Role Phone Unavailable Primary Care Provider Unavailabl e Encounter Details Date Type Department Care Team (Latest Contact Info) Description 12/17/2014 Abstract [facility] Medical Group Delbert Agustin MD [address] [place] [phone] Social History Tobacco Use Types Packs/Day [...] Procedure Name Priority Date/Time Associated Diagnosis Comments NM THYROID SCAN TECHNETIUM Routine 12/17/2014 2:45 PM CDT documented in this encounter Results * NM THYROID SCAN TECHNETIUM (12/17/2014 2:45 PM CDT) Anatomical Region Laterality Modality Thyroid Nuclear Medicine 12/17/2014 2:45 PM CDT 12/17/2014 2:45 PM CDT Narrative 12/17/2014 4:22 PM CDT JUSTINA ORDAZ Ordering MD: DELBERT AGUSTIN MD ?? Acct: [id number] ?? Admit/Service Date: 12/16/14 Discharge Date: ?? : 1970 Pt Type: REG CLI ?? Sex: F Ord Site: [facility] ? Study Date Report # Order # Ext Order ID ?? 12/16/14 [id number] ? Procedure Code Procedure Description ? THYRSCAN NM Thyroid Imaging ? Attending Physician: ?? Delbert Agustin M.D. ?? Consulting Physician: Wade Baird NP ? Medical Imaging [phone] ? IND: ??THYROID NODULE ? EXAM DATE: ??12/16/2014 ?? ORD PHY: ??Delbert Agustin ?EXAM TAHMINA: ??NM THYROID IMAGING ? MEDICAL IMAGING REPORT ? Chart Document ?? RADIONUCLIDE THYROID SCAN: ? Anterior and oblique imaging was performed following oral administration of ? 292 microcuries Iodine 123. ??No prior imaging studies available for ?? comparison. ??Relative diminished tracer uptake is noted within the inferior ? aspect of the right lobe of the thyroid gland. ??Rather homogeneous uptake ?? is evident in the left lobe of the thyroid gland. ??The six hour radioactive ? iodine uptake estimate is 12% (normal range 5-19%). ??The 24 hour ?? radioactive iodine uptake estimate is 18% (normal range 12-33%). ? IMPRESSION: ? DIMINISHED TRACER UPTAKE WITHIN THE INFERIOR RIGHT LOBE OF THE THYROID ?? GLAND. ??CANNOT EXCLUDE A THYROID MASS. ? RECOMMEND THYROID ULTRASOUND EXAMINATION TO FURTHER EVALUATE. ? THE 24 HOUR RADIOACTIVE IODINE UPTAKE IS IN THE EUTHYROID RANGE ESTIMATED ?? TO BE 18%. ? Indications: ??Thyroid nodule ?Electronically Signed By: ?Douglas Glaser M.D. 12/17/2014 04:20 P ?Douglas Glaser M.D. ?? TD:mkp ?? DD: ??12/17/2014 02:45 P ?? DT: ??12/17/2014 02:54 P ? cc: ?Wade Baird NP ?Delbert Agustin M.D. ? Procedure Note Teri Hernandez MD - 03/22/2018 JUSTINA ORDAZ Ordering MD: DELBERT AGUSTIN MD Acct: [id number] Admit/Service Date: 12/16/14 Discharge Date: : 1970 Pt Type: REG CLI Sex: F Ord Site: [facility] Study Date Report # Order # Ext Order ID 12/16/14 [id number] Procedure Code Procedure Description THYRSCAN NM Thyroid Imaging Attending Physician: Delbert Agustin M.D. Consulting Physician: Wade Baird NP Medical Imaging [phone] IND: THYROID NODULE EXAM DATE: 12/16/2014 ORD PHY: Delbert Agustin EXAM TAHMINA: NM THYROID IMAGING MEDICAL IMAGING REPORT Chart Document RADIONUCLIDE THYROID SCAN: Anterior and oblique imaging was performed following oral administrationof 292 microcuries Iodine 123. No prior imaging studies available for comparison. Relative diminished tracer uptake is noted within theinferior aspect of the right lobe of the thyroid gland. Rather homogeneous uptake is evident in the left lobe of the thyroid gland. The six hourradioactive iodine uptake estimate is 12% (normal range 5-19%). The 24 hour radioactive iodine uptake estimate is 18% (normal range 12-33%). IMPRESSION: DIMINISHED TRACER UPTAKE WITHIN THE INFERIOR RIGHT LOBE OF THE THYROID GLAND. CANNOT EXCLUDE A THYROID MASS. RECOMMEND THYROID ULTRASOUND EXAMINATION TO FURTHER EVALUATE. THE 24 HOUR RADIOACTIVE IODINE UPTAKE IS IN THE EUTHYROID RANGE ESTIMATED TO BE 18%. Indications: Thyroid nodule Electronically Signed By: Douglas Glaser M.D. 12/17/201404:20 P Douglas Glaser M.D. TD:paula P P cc: VERA Ibarra M.D. Delbert Agustin MD NUC MED Final Result documented in this encounter Visit Diagnoses Not on filedocumented in this encounter
--- OUTSIDE RECORDS SUMMARY | 2024-05-27 17:45 | XMS_ITS | Encounter Summary ---
Author Organization [facility] Address [address] [place] [address]. [place], [place] [address] [place] [address] Care Team Providers Care Green Inspector Name Role Phone Unavailable Primary Care Provider Unavailabl e Encounter Details Date Type Department Care Team (Late st Contact Info) Description 01/02/2009 Abstract [facility] CONVERSION [address] [address] [place], [place] [phone] Oracio Galeana, SKILLED NURSING FACILITIES PROFESSIONAL [address] [place] [address] Social History Tobacco Use Types Packs/Day Years Used Date Smoking Tobacco: Never Assessed Comments Unknown Sex and Gender Information Value Date Recorded Sex Assigned at Not on file Legal Sex Female 2:01 AM CDT Gender Identity Not on file Sexual Orientation Not on file documented as of this encounter Plan of Treatment Not on file documented as of this encounter Visit Diagnoses Not on filedocumented in this encounter
--- OUTSIDE RECORDS SUMMARY | 2024-05-27 17:45 | XMS_ITS | Encounter Summary ---
Author Organization [facility] Address [address] [place] [address]. [place] [address] [place] [address] Care Team Providers Care Supply Chain Coordinator Name Role Phone Unavailable Primary Care Provider Unavailabl e Encounter Details Date Type Department Care Team (Late st Contact Info) Description 12/09/2011 Abstract [facility] [address] [place] [address] Mary Collier MD [address] [place] [address] Social History Tobacco Use Types [...] as of this encounter Visit Diagnoses Diagnosis Screening for malignant neoplasm of cervix Screening for malignant neoplasm of the cervix documented in this encounter
--- OUTSIDE RECORDS SUMMARY | 2024-05-27 17:45 | XMS_ITS | Encounter Summary ---
Author Organization [facility] Address [address] [place] [address]. [place] [address] Care Team Providers Care Saddle Mechanic Name Role Phone Unavailable Primary Care Provider Unavailabl e Encounter Details Date Type Department Care Team (Latest Contact Info) Description 09/12/2014 Abstract [facility] Medical Group Kt Ruiz MD Social History Tobacco Use Types Packs/Day Years Used Date Smoking Tobacco: Never Assessed Comments Unknown Sex and Gender Information Value Date Recorded Sex Assigned at Not on file Legal Sex Female 2:01 AM CDT Gender Identity Not on file Sexual Orientation Not on file documented as of this encounter Procedure Notes * Kt Ruiz MD - 09/12/2014 10:20 AM CDT [place] [address] Patient: LINH ORDAZ Med Rec#: [id number] Birthdate: 1970 Admit/Svce Date: 09/11/2014 Disch Date: Attending Md: CHART DOCUMENT EKG NO: [id number] DATE: 09/11/2014 ORDER #: [id number] EKG REPORT RATE: 94 MA: WNL QRS: WNL INTERPRETATION: Sinus arrhythmia. Nonspecific ST changes inferior leads. Electronically Signed by Kt Ruiz MD 10/13/2014 05:25 P AA/sp 09/12/201410:20 A 09/12/2014 10:38 A Job No: [id number] Doc No: [id number] cc: Kt Ruiz MD Other Copy documented in this encounter Plan of Treatment Not on file documented as of this encounter Visit Diagnoses Not on filedocumented in this encounter
--- OUTSIDE RECORDS SUMMARY | 2024-05-27 17:45 | XMS_ITS | Encounter Summary ---
Author Organization [facility] Address [address] [place] [address]. [place], [place] [address] [place], [place] [phone] Care Team Providers Care Analytical Clerk Name Role Phone Unavailable Primary Care Provider Unavailabl e Encounter Details Date Type Department Care Team (Late st Contact Info) Description 02/13/2004 Abstract [facility] CONVERSION [address] [place] [address] Molly Rivers MD Social History Tobacco Use Types Packs/Day [...]
--- OUTSIDE RECORDS SUMMARY | 2024-05-27 17:45 | XMS_ITS | Encounter Summary ---
Author Organization [facility] Address [address] [place] [address]. [place] [address] [place] [address] Care Team Providers Care White Lead Grinder Name Role Phone Unavailable Primary Care Provider Unavailabl e Encounter Details Date Type Department Care Team (Late st Contact Info) Description 01/31/2004 Abstract [facility] [address] [place] [address] Mary Collier MD [address] [place] [address] Social History Tobacco Use Types [...]
--- OUTSIDE RECORDS SUMMARY | 2024-05-27 17:45 | XMS_ITS | Encounter Summary ---
Author Organization [facility] Address [address] [place] [address]. [place] [phone] [place], [place] [phone] Care Team Providers Care Dairy Feed Mixing Operator Name Role Phone Unavailable Primary Care Provider Unavailabl e Encounter Details Date Type Department Care Team (Late st Contact Info) Description 04/09/2011 Abstract [facility] [address] [place] [phone] Molly Rivers MD Social History Tobacco Use [...] as of this encounter Visit Diagnoses Diagnosis Other nonspecific findings on examination of blood documented in this encounter
--- OUTSIDE RECORDS SUMMARY | 2024-05-27 17:45 | XMS_ITS | Encounter Summary ---
Author Organization [facility] Address [address] [place] [address]. [place] [phone] [place], [place] [phone] Care Team Providers Care Sales And Marketing Agent Name Role Phone Unavailable Primary Care Provider Unavailabl e Encounter Details Date Type Department Care Team (Latest Contact Info) Description 10/03/2014 Abstract [facility] Medical Group Social History Tobacco Use [...]
--- OUTSIDE RECORDS SUMMARY | 2024-05-27 17:45 | XMS_ITS | Encounter Summary ---
Author Organization [facility] Address [address] [place] [address]. [place] [address] [place] [address] Care Team Providers Care Manager Hiv Name Role Phone Unavailable Primary Care Provider Unavailabl e Encounter Details Date Type Department Care Team (Late st Contact Info) Description 09/15/2010 Abstract [facility] [address] [place], [place] [phone] Ernestine Renae, PRODUCE PRODUCTION TEAM MEMBER [address] [place], [place] [phone] Social History Tobacco Use Types Packs/Day Years Used Date Smoking Tobacco: Never Assessed Comments Unknown Sex and Gender Information Value Date Recorded Sex Assigned at Not on file Legal Sex Female 2:01 AM CDT Gender Identity Not on file Sexual Orientation Not on file documented as of this encounter Plan of Treatment Not on file documented as of this encounter Visit Diagnoses Diagnosis Vaginitis and vulvovaginitis Vaginitis and vulvovaginitis, unspecified documented in this encounter
--- OUTSIDE RECORDS SUMMARY | 2024-05-27 17:45 | XMS_ITS | Encounter Summary ---
Author Organization [facility] Address [address] [place] [address]. [place] [phone] [place] [address] Care Team Providers Care Auto Adjudication Specialist Name Role Phone Unavailable Primary Care Provider Unavailabl e Encounter Details Date Type Department Care Team (Late st Contact Info) Description 09/11/[address] [facility] [address] [place] [place] [address] , Teri Xiao MD Social History Tobacco [...]
--- OUTSIDE RECORDS SUMMARY | 2024-05-27 17:45 | XMS_ITS | Encounter Summary ---
Author Organization [facility] Address [address] [place] [address]. [place] [address] [place] [address] Care Team Providers Care Surface Logging Systems Logger Name Role Phone Unavailable Primary Care Provider Unavailabl e Encounter Details Date Type Department Care Team (Late st Contact Info) Description 09/11/2014 Abstract [facility] Emergency Room [address] [place], [place] [phone] Tyler Gonzalez Jr., MD [facility] [address] [address] Social History Tobacco Use Types Packs/Day [...] of this encounter Visit Diagnoses Diagnosis Other chest pain documented in this encounter
--- OUTSIDE RECORDS SUMMARY | 2024-05-27 17:45 | XMS_ITS | Encounter Summary ---
Author Organization [facility] Address [facility] [place] [address] [place] [address] Care Team Providers Care Engineering And Scientific Programmer Name Role Phone Unavailable Primary Care Provider Unavailabl e Encounter Details Date Type Department Care Team (Late st Contact Info) Description 09/11/2014 Abstract [facility] [address] [place] [address] , Teri Xiao MD Social History Tobacco [...] Procedure Name Priority Date/Time Associated Diagnosis Comments CBC,CONVERSION Routine 09/11/2014 12:00 AM CDT COMPREHENSIVE METABOLIC PANEL Routine 09/11/2014 12:00 AM CDT documented in this encounter Results * COMPREHENSIVE METABOLIC PANEL (09/11/2014 12:00 AM CDT) SODIUM S/P/B 140 135 - 146 meq/l [facility] TO EPIC CONVERSION POTASSIUM S/P/B 3.7 3.5 - 5.3 meq/l [facility] TO EPIC CONVERSION CHLORIDE S/P/B 105 95 - 108 meq/l [facility] TO EPIC CONVERSION CO2 27 17 - 31 meq/l [facility] TO EPIC CONVERSION GLUCOSE 106 70 - 125 mg/dl [facility] TO EPIC CONVERSION BUN 12 7 - 25 mg/dl [facility] TO EPIC CONVERSION CREATININE S/P/B 1.1 0.5 - 1.4 mg/dl [facility] TO EPIC CONVERSION CALCIUM S/P/B 9.0 8.5 - 10.3 mg/dl [facility] TO EPIC CONVERSION BILIRUBIN TOTAL S/P/B 0.5 0.0 - 1.3 mg/dl [facility] TO EPIC CONVERSION ALK PHOS 98 20 - 125 u/l [facility] TO EPIC CONVERSION AST 19 0 - 42 u/l [facility] TO EPIC CONVERSION ALT 21 0 - 48 u/l [facility] TO EPIC CONVERSION TOTAL PROTEIN S/P/B 7.3 6.0 - 8.5 g/dl [facility] TO EPIC CONVERSION ALBUMIN S/P/B 3.7 3.2 - 5.0 G/DL [facility] TO EPIC CONVERSION EGFR NON-AFR. AMER. 58 >60 ml/min/1.7 3 sq.m [facility] TO EPIC CONVERSION 09/11/2014 09/11/2014 Narrative [facility] TO EPIC CONVERSION - 11/06/2014 3:35 PM CDT Reviewed by VICTOR M Nov 06 2014 ??3:36:01:000PM us Generic Conversion Md [facility] Final R Keelvar [facility] TO EPIC CONVERSION * CBC,CONVERSION (09/11/2014 12:00 AM CDT) WBC 11.7 3.8 - 10.8 thous/mcl [facility] TO EPIC CONVERSION HGB 14.2 12.0 - 15.6 g/dl [facility] TO EPIC CONVERSION HCT 41.8 35.0 - 46.0 % [facility] TO EPIC CONVERSION PLATELET COUNT 301 130 - 400 thous/mcl [facility] TO EPIC CONVERSION 09/11/2014 09/11/2014 us Generic Conversion Md [facility] Final R esult [facility] TO EPIC CONVERSION documented in this encounter Visit Diagnoses Not on filedocumented in this encounter
--- OUTSIDE RECORDS SUMMARY | 2024-05-27 17:45 | XMS_ITS | Encounter Summary ---
Author Organization [facility] Address [address] [place] [address]. [place], [place] [phone] [place] [address] Care Team Providers Care Warp Spooler Name Role Phone Unavailable Primary Care Provider Unavailabl e Encounter Details Date Type Department Care Team (Late st Contact Info) Description 03/01/2009 Abstract [facility] CONVERSION [address] [place] [address] Oracio Galeana, EMAIL MARKETING PROCESSOR [address] [place] [address] Social History Tobacco Use Types [...]
--- OUTSIDE RECORDS SUMMARY | 2024-05-27 17:45 | XMS_ITS | Encounter Summary ---
Author Organization [facility] Address [address] [place] [address]. [place], [place] [address] [place] [address] Care Team Providers Care Field Secretary Name Role Phone Unavailable Primary Care Provider Unavailabl e Encounter Details Date Type Department Care Team (Late st Contact Info) Description 12/31/2009 Abstract [facility] CONVERSION [address] [address] [place], [place] [phone] Isela Carney PA [address] [place] [address] Social History Tobacco Use Types [...]
--- OUTSIDE RECORDS SUMMARY | 2024-05-27 17:45 | XMS_ITS | Encounter Summary ---
Author Organization [facility] Address [address] [place] [address]. [place] [phone] [place], [place] [phone] Care Team Providers Care Sugar Cane Farm Manager Name Role Phone Unavailable Primary Care Provider Unavailabl e Encounter Details Date Type Department Care Team (Latest Contact Info) Description 10/10/2014 Abstract [facility] Medical Group Social History Tobacco [...]
--- OUTSIDE RECORDS SUMMARY | 2024-05-27 17:45 | XMS_ITS | Encounter Summary ---
Author Organization [facility] Address [address] [place] [address]. [place], [place] [address] [place], [place] [phone] Care Team Providers Care Invasive Physician Name Role Phone Unavailable Primary Care Provider Unavailabl e Encounter Details Date Type Department Care Team (Latest Contact Info) Description 09/12/2014 Abstract [facility] Medical Group , Teri Xiao MD Social [...] Procedure Name Priority Date/Time Associated Diagnosis Comments PRV ONLY-RESTING TWELVE LEAD EKG Routine 09/12/2014 10:20 AM CDT documented in this encounter Results * PRV ONLY-RESTING TWELVE LEAD EKG (09/12/2014 10:20 AM CDT) 09/12/2014 10:2 0 AM CDT 09/12/2014 10:20 AM CDT Narrative [facility] TO EPIC CONVERSION - 10/13/2014 5:26 PM CDT ?? JUSTINA ORDAZ ORDERING MD: DENISE EUCEDA MD ?? ACCT: [id number] ?? ADMIT/SERVICE DATE: 09/11/14 DISCHARGE DATE: 09/11/14 ?? : 1970 PT TYPE: DEP ER ?? SEX: F ORD SITE: [facility] ? CHART DOCUMENT ?? EKG NO: ??[id number] ?? DATE: ??09/11/2014 ? ORDER #: ??[id number] ?EKG REPORT ? RATE: ??94 ? SD: ??WNL ?QRS: ??WNL ? INTERPRETATION: ?? SINUS ARRHYTHMIA. ??NONSPECIFIC ST CHANGES INFERIOR LEADS. ? ELECTRONICALLY SIGNED BY ?? KRISTINE MCALLISTER MD 10/13/2014 05:25 P ? AA/SP ?? 09/12/201410:20 A ?? 09/12/2014 10:38 A ?? JOB NO: ??[id number] ??DOC NO: ??[id number] ?? CC: ?KRISTINE MCALLISTER MD ?OTHER COPY ? Procedure Note Teri Amor MD - 03/22/2018 JUSTINA ORDAZ ORDERING MD: DENISE EUCEDA MD ACCT: [id number] ADMIT/SERVICE DATE: 09/11/14 DISCHARGE DATE: 09/11/14 : 1970 PT TYPE: DEP ER SEX: F ORD SITE: [facility] CHART DOCUMENT EKG NO: [id number] DATE: 09/11/2014 ORDER #: [id number] EKG REPORT RATE: 94 SD: WNL QRS: WNL INTERPRETATION: SINUS ARRHYTHMIA. NONSPECIFIC ST CHANGES INFERIOR LEADS. ELECTRONICALLY SIGNED BY KRISTINE MCALLISTER MD 10/13/2014 05:25 P AA/SP 09/12/201410:20 A 09/12/2014 10:38 A JOB NO: [id number] DOC NO: [id number] CC: KRISTINE MCALLISTER MD OTHER COPY us Generic Conversion Md [facility] Final R esult [facility] TO EPIC CONVERSION documented in this encounter Visit Diagnoses Not on filedocumented in this encounter
--- OUTSIDE RECORDS SUMMARY | 2024-05-27 17:45 | XMS_ITS | Encounter Summary ---
Author Organization [facility] Address [address] [place] [address]. [place] [address] [place] [address] Care Team Providers Care Cardiac Nurse Practitioner Name Role Phone Unavailable Primary Care Provider Unavailabl e Encounter Details Date Type Department Care Team (Late st Contact Info) Description 12/03/2010 Abstract [facility] [address] [place] [address] Mary Collier MD [address] [place] [address] Social History Tobacco Use Types [...]
--- OUTSIDE RECORDS SUMMARY | 2024-05-27 17:45 | XMS_ITS | Encounter Summary ---
Author Organization [facility] Address [address] [place] [address]. [place] [id number] [place], [place] [phone] Care Team Providers Care Second Class Welder Name Role Phone Unavailable Primary Care Provider Unavailabl e Encounter Details Date Type Department Care Team (Late st Contact Info) Description 10/04/2014 Abstract [facility] Family & Internal Medicine [facility] [address] [place] [address] Wade Baird NP Social History [...] Reading Time Taken Comments Blood Pressure 102/70 10/04/2014 3:49 PM CDT Pulse 84 10/04/2014 3:49 PM CDT Temperature - - Respiratory Rate - - Oxygen Saturation - - Inhaled Oxygen Concentration - - Weight 99.8 kg (220 lb) 10/04/2014 3:49 PM CDT Height 161.3 cm (5' 3.5 ) 10/04/2014 3:49 PM CDT Body Mass Index 38.36 10/04/2014 3:49 PM CDT documented in this encounter Progress Notes * Wade Baird NP - 10/04/2014 3:30 PM CDT Reason For Visit New Patient Visit to establish care. States had an abnormal EKG. Chief Complaint 1. Physician Consult History of Present Illness 44 y/o healthy female new patient here with concerns about abnormal EKG recently done in ER for episode of chest pain which was related to muscle strain. she has no cardiac issues but father bypass early age and grandfather massive MT age 67 plus other FH CAD on fathers side. She has not received routine care since she is healthy. plays football seasonally but otherwise no routine exercise. 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 ER record reviewed and EKG with prolonged QT interval to 487. lab work all normal Review of Systems Constitutional: negative. Eyes: negative. ENT: negative. Cardiovascular: negative. Respiratory: negative. The patient presents with complaints of sudden onset of occasional episodes of moderate right upperquadrant abdominal pain, described as crampy, non-radiating. Symptoms are made worse by alcohol Symptoms are unchanged (occasional RUQ pain with wine and certain foods similar to pain before cholescystectomy). Genitourinary: negative. Musculoskeletal: negative. Integumentary negative. Psychiatric: negative. Neurological Negative. Past Medical History 1. History of malignant [...] Bernadine Chisholm; 10/04/2014 3:48:48 PM Vitals Recorded: [id number] 03:49PM Temperature 98.6 F Heart Rate 84 Respiration 16 Systolic 102 Diastolic 70 O2 Saturation 98 Height 5 ft 3.5 in Weight 220 lb BMI Calculated 38.36 BSA Calculated 2.03 Physical Exam Constitutional General appearance: Abnormal. Overweight. Eyes Conjunctiva and lids: No swelling, erythema or discharge. Pupils and irises: Equal, round, reactive to light. Ears, Nose, Mouth, and Throat External inspection of ears and nose: Normal. Otoscopic examination: Tympanic membranes translucent with normal light reflex. Canals patent without erythema. Lips, teeth, and gums: Normal, good dentition. Oropharynx: Normal with no erythema, edema, exudate or lesions. Neck Neck: Supple, symmetric, trachea midline, no masses. Thyroid: Normal, no thyromegaly. Pulmonary Respiratory effort: No increased work of breathing or signs of respiratory distress. Auscultation of lungs: Clear to auscultation. Cardiovascular Auscultation of heart: Normal rate and rhythm, normal S1 and S2, no murmurs. Pedal pulses: 2+ bilaterally. Examination of extremities for edema and/or varicosities: Normal. Abdomen: Non-tender, no masses. Liver and spleen: No hepatomegaly or splenomegaly. Lymphatic Palpation of lymph nodes in neck: No lymphadenopathy. Skin Skin and subcutaneous tissue: Normal without rashes or lesions. Psychiatric Recent and remote memory: Intact. Mood and affect: Normal. Assessment 1. Abnormal EKG (794.31) (R94.31) 2. Abdominal pain, right upper quadrant (789.01) (R10.11) Plan Abdominal pain, right upper quadrant, Abnormal EKG 1. Follow-up visit in 3 months Outpatient Follow-up Status: Hold For - Scheduling Requested for: [id number] Ordered; For: Abdominal pain, right upper quadrant, Abnormal EKG; Ordered By: Wade Baird Performed: Due: 18Oct2014 Abnormal EKG 2. Cardiology Referral Outpatient please evaluate for long qt interval on EKG with extensive FH CAD and sudden MT Status: Need Information - Financial Authorization Requested for: [id number] Ordered; For: Abnormal EKG; Ordered By: Wade Baird Performed: Order Comments: please refer to Dr. Booker or Melissa and include EKG and lab from ER visit Due: 18Oct2014 3. EKG; Status:Active; Requested for:04Oct2014; Perform:Other; Due:14Oct2014;Ordered; For:Abnormal EKG; Ordered By:Wade Baird; EKG in office with sinus arrhythmia with QT interval 442; refer to cardiology for assessment of cardiac risk monitor abdominal pain, if worsens may need an US meanwhile pay attention to what increases pain f/u 3 months and prn Signatures Electronically signed by : Wade Baird NP; Oct 04 2014 6:46PM YOUTH SERVICES LIBRARIAN (Author) documented in this encounter Plan of Treatment Not on file documented as of this encounter Visit Diagnoses Not on filedocumented in this encounter
--- OUTSIDE RECORDS SUMMARY | 2024-05-27 17:45 | XMS_ITS | Encounter Summary ---
Author Organization [facility] Address [address] [place] [address]. [place] [address] [place] [address] Care Team Providers Care Implant Coordinator Name Role Phone Unavailable Primary Care Provider Unavailabl e Encounter Details Date Type Department Care Team (Late st Contact Info) Description 09/03/2005 Abstract [facility] [address] [place] [address] Ghanshyam Woodall MD [address] Manjarrez [address] [place] [phone] Social History Tobacco Use Types Packs/Day Years [...]
--- OUTSIDE RECORDS SUMMARY | 2024-05-27 17:45 | XMS_ITS | Encounter Summary ---
Author Organization [facility] Address [address] [place] [address]. [place], [place] [address] [place], [place] [phone] Care Team Providers Care Cycle Consultant Name Role Phone Unavailable Primary Care Provider Unavailabl e Encounter Details Date Type Department Care Team (Late st Contact Info) Description 01/20/2005 Abstract [facility] [address] [place] [address] Molly Rivers MD Social History Tobacco Use [...]
--- OUTSIDE RECORDS SUMMARY | 2024-05-27 17:45 | XMS_ITS | Encounter Summary ---
Author Organization [facility] Address [address] [place] [address]. [place], [place] [address] [place], [place] [phone] Care Team Providers Care Background Check Coordinator Name Role Phone Unavailable Primary Care Provider Unavailabl e Encounter Details Date Type Department Care Team (Late st Contact Info) Description 01/22/2004 Abstract [facility] [address] [place] [address] Molly Rivers MD Social History Tobacco Use [...]
--- OUTSIDE RECORDS SUMMARY | 2024-05-27 17:45 | XMS_ITS | Encounter Summary ---
Author Organization [facility] Address [address] [place] [address]. [place] [address] [place] [address] Care Team Providers Care Occupational Health Nurse Manager Name Role Phone Unavailable Primary Care Provider Unavailabl e Encounter Details Date Type Department Care Team (Late st Contact Info) Description 12/03/2010 Abstract [facility] [address] [place] [address] , Generic Conversion, Social History Tobacco Use [...] Procedure Name Priority Date/Time Associated Diagnosis Comments THYROID PANEL Routine 12/03/2010 12:00 AM CDT documented in this encounter Results * THYROID PANEL (12/03/2010 12:00 AM CDT) FREE T4 0.922 0.8 - 1.8 mg/dl MEDINFORMAT[facility] TO EPIC CONVERSION TSH 2.86 0.4 - 5.5 micro IU/ml MEDINFORMATIX TO EPIC CONVERSION 12/03/2010 12/03/2010 Narrative MEDINFORMATIX TO EPIC CONVERSION - 11/06/2014 3:35 PM CDT Reviewed by VICTOR M Nov 06 2014 ??3:36:01:000PM us Generic Conversion Md [facility] Final R esult MEDINFORMATIX TO EPIC CONVERSION documented in this encounter Visit Diagnoses Not on filedocumented in this encounter
--- OUTSIDE RECORDS SUMMARY | 2024-05-27 17:45 | XMS_ITS | Encounter Summary ---
Author Organization [facility] Address [address] [place] [address]. [place] [address] [place] [address] Care Team Providers Care Records Custodian Name Role Phone Unavailable Primary Care Provider Unavailabl e Encounter Details Date Type Department Care Team (Late st Contact Info) Description 11/05/2014 Abstract [facility] [address] [place] [address] , Teri Xiao MD Social History Tobacco [...] Sign Reading Time Taken Comments Blood Pressure 110/70 11/05/2014 8:55 AM CDT Pulse 68 11/05/2014 8:55 AM CDT Temperature - - Respiratory Rate - - Oxygen Saturation - - Inhaled Oxygen Concentration - - Weight 98.9 kg (218 lb) 11/05/2014 8:55 AM CDT Height 162.6 cm (5' 4 ) 11/05/2014 8:55 AM CDT Body Mass Index 37.42 11/05/2014 8:55 AM CDT documented in this encounter Plan of Treatment Not on file documented as of this encounter Visit Diagnoses Not on filedocumented in this encounter
--- OUTSIDE RECORDS SUMMARY | 2024-05-27 17:45 | XMS_ITS | Encounter Summary ---
Author Organization [facility] Address [address] [place] [address]. [place] [address] [place] [address] Care Team Providers Care Language Instructor Name Role Phone Unavailable Primary Care Provider Unavailabl e Encounter Details Date Type Department Care Team (Late st Contact Info) Description 12/07/2006 Abstract [facility] [address] [place] [address] Mary Collier MD [address] [place] [address] Social History Tobacco Use Types [...]
--- OUTSIDE RECORDS SUMMARY | 2024-05-27 17:45 | XMS_ITS | Encounter Summary ---
Author Organization [facility] Address [address] [place] [address]. [place], [place] [address] [place] [address] Care Team Providers Care Grip Assembler Name Role Phone Unavailable Primary Care Provider Unavailabl e Encounter Details Date Type Department Care Team (Late st Contact Info) Description 02/07/2008 Abstract [facility] CONVERSION [address] [place], [place] [id number] Dawson Vanessa MD [address] [place] [address] Social History Tobacco Use Types [...]
--- OUTSIDE RECORDS SUMMARY | 2024-05-27 17:45 | XMS_ITS | Encounter Summary ---
Author Organization [facility] Address [address] [place] [address]. [place] [address] [place] [address] Care Team Providers Care Patient Support Specialist Name Role Phone Unavailable Primary Care Provider Unavailabl e Encounter Details Date Type Department Care Team (Late st Contact Info) Description 12/14/2012 Abstract [facility] [address] [place] [address] Mary Collier MD [address] [place] [address] Social History Tobacco Use Types [...]
--- OUTSIDE RECORDS SUMMARY | 2024-05-27 17:45 | XMS_ITS | Encounter Summary ---
Author Organization [facility] Address [address] [place] [address]. [place] [address] [place] [address] Care Team Providers Care [place] Coordinator Name Role Phone Unavailable Primary Care Provider Unavailabl e Encounter Details Date Type Department Care Team (Late st Contact Info) Description 12/03/2010 Abstract [facility] [address] [place] [address] Mary Collier MD [address] [place] [address] Social History Tobacco Use Types Packs/Day Years [...] of this encounter Visit Diagnoses Diagnosis Abnormal weight gain documented in this encounter
--- OUTSIDE RECORDS SUMMARY | 2024-05-27 17:45 | XMS_ITS | Encounter Summary ---
Author Organization [facility] Address [address] [place] [address]. [place] [address] [place] [address] Care Team Providers Care Hazardous Material Technician Name Role Phone Unavailable Primary Care Provider Unavailabl e Encounter Details Date Type Department Care Team (Late st Contact Info) Description 07/29/2005 Abstract [facility] [address] [place] [address] Ghanshyam Woodall MD [address] Manjarrez [address] [place] [phone] Social History Tobacco Use Types Packs/Day [...]
--- OUTSIDE RECORDS SUMMARY | 2024-05-27 17:45 | XMS_ITS | Encounter Summary ---
Author Organization [facility] Address [address] [place] [address]. [place] [address] [place] [address] Care Team Providers Care Physical Education Department Chair Name Role Phone Unavailable Primary Care Provider Unavailabl e Encounter Details Date Type Department Care Team (Late st Contact Info) Description 01/28/2005 Abstract [facility] [address] [place] [address] Ghanshyam Woodall MD [address] Manjarrez [address] [place] [phone] Social History Tobacco Use Types Packs/Day [...]
--- OUTSIDE RECORDS SUMMARY | 2024-05-27 17:45 | XMS_ITS | Encounter Summary ---
Author Organization [facility] Address [address] [place] [address]. [place] [phone] [address], [place] [phone] Care Team Providers Care Scow Hand Name Role Phone Unavailable Primary Care Provider Unavailabl e Encounter Details Date Type Department Care Team (Late st Contact Info) Description 10/31/2014 Abstract [facility] [place] [address] [place] [phone] , Teri Xiao MD Social History Tobacco [...]
--- OUTSIDE RECORDS SUMMARY | 2024-05-27 17:45 | XMS_ITS | Encounter Summary ---
Author Organization [facility] Address [address] [place] [address]. [place], [place] [address] [place], [place] [phone] Care Team Providers Care Photographic Artist Name Role Phone Unavailable Primary Care Provider Unavailabl e Encounter Details Date Type Department Care Team (Late st Contact Info) Description 06/14/2005 Abstract [facility] [address] [place] [address] Molly Rivers MD Social History Tobacco Use [...]
--- OUTSIDE RECORDS SUMMARY | 2024-05-27 17:45 | XMS_ITS | Encounter Summary ---
Author Organization [facility] Address [address] [place] [address]. [place] [address] [place] [address] Care Team Providers Care Tire Classifier Name Role Phone Unavailable Primary Care Provider Unavailabl e Encounter Details Date Type Department Care Team (Late st Contact Info) Description 02/24/2005 Abstract [facility] [address] [place] [address] Ghanshyam Woodall MD [address] [place] [phone] Social History Tobacco Use Types Packs/Day [...]
--- OUTSIDE RECORDS SUMMARY | 2024-05-27 17:45 | XMS_ITS | Encounter Summary ---
Author Organization [facility] Address [address] [place] [address]. [place] [address] [place] [address] Care Team Providers Care Railcar Carpenter Name Role Phone Unavailable Primary Care Provider Unavailabl e Encounter Details Date Type Department Care Team (Late st Contact Info) Description 07/08/2005 Abstract [facility] [address]15 [place] [address] Ghanshyam Woodall MD [address] Man[address]rez [address] [place] [phone] Social History Tobacco Use Types Packs/Day [...]
--- OUTSIDE RECORDS SUMMARY | 2024-05-27 17:45 | XMS_ITS | Encounter Summary ---
Author Organization [facility] Address [address] [place] [address]. [place] [address] [place] [address] Care Team Providers Care Portuguese Tutor Name Role Phone Unavailable Primary Care Provider Unavailabl e Encounter Details Date Type Department Care Team (Late st Contact Info) Description 11/18/2014 Abstract [facility] [place] [id number] [place] [phone] , Generic Conversion, Social History Tobacco Use [...] Procedure Name Priority Date/Time Associated Diagnosis Comments EXTERNAL EJECTION FRACTION Routine 11/18/2014 12:00 AM CDT documented in this encounter Results * EXTERNAL EJECTION FRACTION (11/18/2014 12:00 AM CDT) EJECTION FRACTION 55-60 [facility] Comment:SummaryNormal bivent ricular size and systolic function.Estimated EF of 55-60%.No significant valvular dysfunction.Normal estimated pulmonary pressures. Anatomical Region Laterality Modality Other 11/18/2014 11/18/2014 Narrative 11/18/2014 12:00 AM CDT transthoracic echo, ordered by Rashaun Booker M.D. us Generic Conversion Md [facility] Final R esult documented in this encounter Visit Diagnoses Not on filedocumented in this encounter
--- OUTSIDE RECORDS SUMMARY | 2024-05-27 17:45 | XMS_ITS | Encounter Summary ---
Author Organization [facility] Address [address] [place] [address]. [place], [place] [address] [place] [address] Care Team Providers Care Data Analyst Report Writer Name Role Phone Unavailable Primary Care Provider Unavailabl e Encounter Details Date Type Department Care Team (Late st Contact Info) Description 09/26/2007 Abstract [facility] CONVERSION [address] [address] [place], [place] [id number] Dawson Vanessa MD [address] [place] [address] Social History Tobacco Use Types [...]
--- OUTSIDE RECORDS SUMMARY | 2024-05-27 17:45 | XMS_ITS | Encounter Summary ---
Author Organization [facility] Address [address] [place] [address]. [place] [address] [place] [address] Care Team Providers Care Cocoa Bean Roaster Name Role Phone Unavailable Primary Care Provider Unavailabl e Encounter Details Date Type Department Care Team (Late st Contact Info) Description 09/09/[address] [facility] [address] [place] [address] Ghanshyam Woodall MD [address] [place] [phone] Social History Tobacco Use Types Packs/Day [...]
--- OUTSIDE RECORDS SUMMARY | 2024-05-27 17:45 | XMS_ITS | Encounter Summary ---
Author Organization [facility] Address [address] [place] [address]. [place], [place] [address] [place], [place] [phone] Care Team Providers Care Manager Disaster Recovery Name Role Phone Unavailable Primary Care Provider Unavailabl e Encounter Details Date Type Department Care Team (Late st Contact Info) Description 10/09/2003 Abstract [facility] [address] [place] [address] Molly Rivers MD Social History Tobacco Use [...]
--- OUTSIDE RECORDS SUMMARY | 2024-05-27 17:45 | XMS_ITS | Encounter Summary ---
Author Organization [facility] Address [address] [place] [address]. [place], [place] [address] [place] [address] Care Team Providers Care Merchandise For Resale Purchasing Agent Name Role Phone Unavailable Primary Care Provider Unavailabl e Encounter Details Date Type Department Care Team (Late st Contact Info) Description 02/25/2006 Abstract [facility] [address] [place] [address] Clem Arauz MD [address] [phone] Social History Tobacco Use Types Packs/Day Years [...]
--- OUTSIDE RECORDS SUMMARY | 2024-05-27 17:45 | XMS_ITS | Encounter Summary ---
Author Organization [facility] Address [address] [place] [address]. [place] [address] [place] [address] Care Team Providers Care Automatic Machine Attendant Name Role Phone Unavailable Primary Care Provider Unavailabl e Encounter Details Date Type Department Care Team (Late st Contact Info) Description 11/27/2008 Abstract [facility] [address] [place], [place] [id number] Ernestine Renae, DELIVERY RN [address] [place] [phone] Social History Tobacco Use Types Packs/Day Years [...]
--- OUTSIDE RECORDS SUMMARY | 2024-05-27 17:45 | XMS_ITS | Encounter Summary ---
Author Organization [facility] Address [address] [place] [address]. [place], [place] [address] [place], [place] [phone] Care Team Providers Care Clam Shucker Name Role Phone Unavailable Primary Care Provider Unavailabl e Encounter Details Date Type Department Care Team (Late st Contact Info) Description 05/14/2005 Abstract [facility] [address] [place] [address] Molly Rivers MD Social History Tobacco Use [...]
--- OUTSIDE RECORDS SUMMARY | 2024-05-27 17:45 | XMS_ITS | Encounter Summary ---
Author Organization [facility] Address [address] [place] [address]. [place] [address] [place] [address] Care Team Providers Care Painting Contractor Name Role Phone Unavailable Primary Care Provider Unavailabl e Encounter Details Date Type Department Care Team (Late st Contact Info) Description 11/28/2003 Abstract [facility] [address] [place], [place] [id number] Ernestine Renae, DIRECTOR TITLE [address] [place], [place] [phone] Social History Tobacco Use Types Packs/Day Years [...]
--- OUTSIDE RECORDS SUMMARY | 2024-05-27 17:45 | XMS_ITS | Encounter Summary ---
Author Organization [facility] Address [address] [place] [address]. [place] [phone] [place], [place] [phone] Care Team Providers Care Bank Operations Officer Name Role Phone Unavailable Primary Care Provider Unavailabl e Encounter Details Date Type Department Care Team (Late st Contact Info) Description 09/20/2014 Abstract [facility] Family & Internal Medicine [address] [address] Wade Baird, WAITER/WAITRESS TOURIST CLASS Social History Tobacco Use Types Packs/Day Years [...]
--- OUTSIDE RECORDS SUMMARY | 2024-05-27 17:45 | XMS_ITS | Encounter Summary ---
Author Organization [facility] Address [address] [place] [address]. [place] [phone] [place], [place] [phone] Care Team Providers Care Cafe Associate Name Role Phone Unavailable Primary Care Provider Unavailabl e Encounter Details Date Type Department Care Team (Late st Contact Info) Description 10/31/2014 [facility] [address] [place] [address] , Teri Xiao MD Social History Tobacco [...]
--- OUTSIDE RECORDS SUMMARY | 2024-05-27 17:45 | XMS_ITS | Encounter Summary ---
Author Organization [facility] Address [address] [place] [address]. [place] [address] [place] [address] Care Team Providers Care Exceptional Needs Teacher Name Role Phone Unavailable Primary Care Provider Unavailabl e Encounter Details Date Type Department Care Team (Late st Contact Info) Description 08/14/2004 Abstract [facility] [address] [place] [address] Mary Collier MD [address] [place] [address] Social History Tobacco Use Types [...]
--- OUTSIDE RECORDS SUMMARY | 2024-05-27 17:45 | XMS_ITS | Encounter Summary ---
Author Organization [facility] Address [address] [place] [address]. [place] [address] [place] [address] Care Team Providers Care Lace Mender Name Role Phone Unavailable Primary Care Provider Unavailabl e Encounter Details Date Type Department Care Team (Late st Contact Info) Description 07/28/2005 Abstract [facility] [address] [place] [address] Ghanshyam [place] MD [address] [place] [phone] Social History Tobacco Use Types Packs/Day [...]
--- OUTSIDE RECORDS SUMMARY | 2024-05-27 17:45 | XMS_ITS | Encounter Summary ---
Author Organization [facility] Address [address] [place] [address]. [place], [place] [address] [place], [place] [phone] Care Team Providers Care Staffing Program Manager Name Role Phone Unavailable Primary Care Provider Unavailabl e Encounter Details Date Type Department Care Team (Late st Contact Info) Description 07/15/2005 Abstract [facility] [address] [place] [address] Molly Rivers MD Social History Tobacco Use [...]
--- OUTSIDE RECORDS SUMMARY | 2024-05-27 17:45 | XMS_ITS | Encounter Summary ---
Author Organization [facility] Address [address] [place] [address]. [place] [address] [place] [address] Care Team Providers Care Bottle Packing Machine Cleaner Name Role Phone Unavailable Primary Care Provider Unavailabl e Encounter Details Date Type Department Care Team (Late st Contact Info) Description 01/29/2004 Abstract [facility] CONVERSION [address] [place], [place] [id number] Ernestine Renae, WEB COMMUNICATIONS SPECIALIST [address] [place], [place] [id number] Social History Tobacco Use Types Packs/Day Years [...]
--- OUTSIDE RECORDS SUMMARY | 2024-05-27 17:45 | XMS_ITS | Encounter Summary ---
Author Organization [facility] Address [address] [place] [address]. [place] [address] [place] [address] Care Team Providers Care Gate Shear Operator Name Role Phone Unavailable Primary Care Provider Unavailabl e Encounter Details Date Type Department Care Team (Late st Contact Info) Description 03/11/2005 Abstract [facility] CONVERSION [address] [place] [address] Ghanshyam Woodall MD [address] [place] [address] Social History Tobacco Use Types [...]
--- OUTSIDE RECORDS SUMMARY | 2024-05-27 17:45 | XMS_ITS | Encounter Summary ---
Author Organization [facility] Address [address] [place] [address]. [place], [place] [id number] [place] [id number] Care Team Providers Care Pedorthist Name Role Phone Unavailable Primary Care Provider Unavailabl e Encounter Details Date Type Department Care Team (Late st Contact Info) Description 01/29/2006 Abstract [facility] CONVERSION [address] [address] [place], [place] [id number] Dawson Vanessa MD [address] [place] [address] Social History Tobacco Use Types [...]
--- OUTSIDE RECORDS SUMMARY | 2024-05-27 17:45 | XMS_ITS | Encounter Summary ---
Author Organization [facility] Address [address] [place] [address]. [place] [id number] [place], [place] [id number] Care Team Providers Care Straightening Press Operator Helper Name Role Phone Unavailable Primary Care Provider Unavailabl e Encounter Details Date Type Department Care Team (Latest Contact Info) Description 11/18/2014 Abstract [facility] Social History Tobacco [...]
--- OUTSIDE RECORDS SUMMARY | 2024-05-27 17:46 | XMS_ITS | Encounter Summary ---
Author Organization [facility] Address [address] [place] [address]. [place], [place] [id number] [place], [place] [id number] Care Team Providers Care International Representative Name Role Phone Unavailable Primary Care Provider Unavailabl e Encounter Details Date Type Department Care Team (Late st Contact Info) Description 07/08/[address] [facility] [address] [place] [address] , Generic Conversion, Social History Tobacco Use [...]
--- OUTSIDE RECORDS SUMMARY | 2024-05-27 17:46 | XMS_ITS | Encounter Summary ---
Author Organization [facility] Address [address] [place] [address]. [place] [id number] [place], [place] [id number] Care Team Providers Care Urban Gardening Specialist Name Role Phone Unavailable Primary Care Provider Unavailabl e Encounter Details Date Type Department Care Team (Late st Contact Info) Description 07/10/1999 Abstract [facility] CONVERSION [address] [address] [place] [id number] , Generic Conversion, Social History Tobacco Use [...]
== END 2024-05-20 14:39 | disposition home or self-care (01) ==
PROVIDERS: Emergency Provider Registered Nurse; Referring Provider Emergency Medicine
DX: J18.1 Lobar pneumonia, unspecified organism (principal)
CPT/HCPCS: 71046; 99213; G0463

== ENCOUNTER 2025-05-08 08:09 | Emergency (ER) | payer OTHER, SELFPAY ==
--- NOTE | 2025-05-08 08:13 | ED.URI ---
HPI - URI/Sore Throat General Chief Complaint: Upper Respiratory Infection Stated Complaint: URI Time Seen by Provider: 05/08/25 08:40 Source: patient and RN notes reviewed Mode of arrival: ambulatory Limitations: no limitations History of Present Illness HPI Narrative: 55-year-old female presents concern for one-week history of productive yellow cough. She reports chest congestion and chest tightness. She reports mild rhinorrhea and stuffy nose. She reports she had pneumonia last year with similar symptoms MD elicited complaint: cough Related Data Home Medications ?Medication ?Instructions ?Recorded ?Confirmed ?Last Taken ?Type nortriptyline 25 mg capsule mg 05/20/24 Unknown History Allergies Allergy/AdvReac Type Severity Reaction Status Date / Time No Known Allergies Allergy Verified 05/08/25 08:24 Review of Systems Review of Systems: CONSTITUTIONAL: Denies malaise, chills, sweats, or fever. EYES: Denies visual changes, redness, or discharge. ENT: Reports mild rhinorrhea, congestion. Denies sinus pain, otalgia and sore throat. CARDIOVASCULAR: Denies chest pain, palpitations, or edema. RESPIRATORY: Reports cough. Denies dyspnea. GASTROINTESTINAL: Denies abdominal pain, nausea, vomiting, diarrhea SKIN: Denies rash or itching. MUSCULOSKELETAL: Denies myalgia. NEUROLOGIC: Denies headache. 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 There is no relevant family history pertinent to the presenting complaint Exam Narrative: GENERAL: Well-appearing, well-nourished, and in no acute distress. HEAD: Normocephalic EYES: PERRLA, conjunctivae clear ENT: Nares clear, clear discharge. Mucous membranes moist. TM pearly vargas with sharp light reflex bilaterally; no tragal tenderness. Oropharynx not erythematous without lesions. Tonsils not enlarged and without exudate, no drooling, no hoarseness, no trismus, uvula midline. NECK: Supple. No lymphadenopathy CHEST: Scattered inspiratory wheeze, otherwise Clear to auscultation, breath sounds equal. No wheezing, rhonchi, rales, or stridor. No respiratory distress, speaks in full sentences. HEART: Regular rate and rhythm. No murmur heard. SKIN: Warm, dry, no rash. NEURO: Alert and oriented x3. PSYCH: Normal mood and affect Course Course Emergency Course: Patient is aware of diagnosis, understands and agrees to treatment plan. Anticipatory guidance given. Patient agrees to follow-up as directed and is aware of reasons to seek care at the emergency department. Portions of this record may have been created with voice recognition software Level of Care: [facility] Visit MDM Differential Diagnosis Differential Diagnosis: I evaluated this patient in the [facility]. History is obtained from patient who is an independent historian and physical exam was performed.? Available medical records were reviewed. ? Exam findings and relevant testing show no acute concerns or changes; patient is non-toxic appearing and is in no distress. ? Differential diagnosis considered: Crisostomo virus, strep pharyngitis, allergic rhinitis, upper respiratory tract infection, sinusitis, rhinosinusitis, nasopharyngitis. viral pharyngitis, otitis media, otitis externa, pneumonia, bronchitis, viral cough syndrome, viral syndrome, and influenza. Differential diagnosis and treatment plan were discussed with the patient. Patient agrees with discussion and after shared medical decision making agrees with plan of care. All questions were answered to the patient's satisfaction. Patient is appropriate for outpatient treatment and follow-up. Discharge Plan Discharge Clinical Impression: Lower respiratory tract infection Patient Disposition: .Default Instructions: Antibiotic Form, Acute Cough (ED) Additional Instructions: Take medications as prescribed Recommend antihistamine such as Benadryl at night time and Zyrtec or Angi during the day Use inhaler as needed for cough, wheezing, shortness of breath or chest tightness. Also, recommend symptomatic treatment includes: rest, fluids, and increase humidity of the air at home. Recommend Acetaminophen as directed on the bottle to reduce fever, pain, headache. Avoid smoking/second-hand smoke. Please schedule a follow-up visit with your personal physician for further evaluation and treatment within 3-5days. If your symptoms persist, change or worsen significantly before you can contact your personal physician then please, without delay, go to the emergency department for further evaluation. Patient Language: Tamazight Prescriptions: New azithromycin [Zithromax Z-Rubio] 250 mg tablet See Rx Instructions .ROUTE .COMPLEX Qty: 6 0RF Rx Instructions: take 500 mg today (day 1), then 250 mg for 4 days (days 2-5) methylprednisolone [Medrol (Rubio)] 4 mg tablets,dose pack See Rx Instructions .ROUTE .COMPLEX Qty: 21 0RF Rx Instructions: orally per package directions albuterol sulfate 90 mcg/actuation HFA aerosol inhaler 2 puff INHALATION QID PRN (Reason: shortness of breath or wheezing) Qty: 8.5 0RF No Action nortriptyline 25 mg capsule Follow-up/Referrals: UNKNOWN,DOCTOR [Primary Care Provider] Time of Disposition: 08:45
[2025-05-08 08:24] VITALS: BP 121/87; PULSE 109; RESP 18; TEMP 36.1; O2SAT 100
== END 2025-05-08 08:53 | disposition home or self-care (01) ==
PROVIDERS: Emergency Provider Nurse Practitioner
DX: J22 Unspecified acute lower respiratory infection (principal)
CPT/HCPCS: 99213; G0463